=== PATIENT | male | born 1980 | race African-American/Black ===

== ENCOUNTER 2020-02-20 10:24 | Inpatient (IN) | payer OTHER ==
--- NOTE | 2020-02-20 10:47 | BHS.RME ---
Substance Use & Tx History - Substance Use History Alcohol Substance amount: 2 L liqour Frequency of use: Daily Substance route: Oral Date of Last Use: 02/20/20 - Last Treatment Date of last treatment: 3 months ago, does not remeber where Where was last treatment: Detox Physical/Psych/Mental Status - Behavior General Behavior: Increased activity (restlessness, agitation) Eye Contact: Normal - Cooperativeness Cooperativeness: Cooperative - Thinking Thought Processes: Logical Thought content: Future oriented - Physical Health Problems Is patient presently having any pain?: No Does patient presently have any injuries (include location): No Does patient currently have a fever: No CIWA Nausea/Vomitin Muscle Tremors: 2 Anxiety: 1-Mildly Anxious Agitation: 1-Slight > Activity Paroxysmal Sweats: 2 Orientation: 0-Oriented Tacttile Disturbances: 0-None Auditory Disturbances: 0-None Visual Disturbances: 0-None Headache: 2-Mild CIWA-Ar Total Score: 11
--- NOTE | 2020-02-20 10:59 | HP ---
CIWA Score Nausea/Vomitin Muscle Tremors: 2 Anxiety: 1-Mildly Anxious Agitation: 1-Slight > Activity Paroxysmal Sweats: 2 Orientation: 0-Oriented Tacttile Disturbances: 0-None Auditory Disturbances: 0-None Visual Disturbances: 0-None Headache: 2-Mild CIWA-Ar Total Score: 11 - Admission Criteria [facility]ASAS Guidelines: Admission for Medically Managed Detox: Requires at least one of the followin. CIWA greater than 12 2. Seizures within the past 24 hours 3. Delirium tremens within the past 24 hours 4. Hallucinations within the past 24 hours 5. Acute intervention needed for co occurring medical disorder 6. Acute intervention needed for co occurring psychiatric disorder 7. Severe withdrawal that cannot be handled at a lower level of care (continued vomiting, continued diarrhea, abnormal vital signs) requiring intravenous medication and/or fluids 8. Patient presents the following: Seizures, delirium tremens or hallucinations in the past 12 hours Admission Criteria Met: Admission criteria met Admission ROS BHS - HPI Chief Complaint: I need help Allergies/Adverse Reactions: Allergies Allergy/AdvReac Type Severity Reaction Status Date / Time seafood Allergy Severe Swelling Uncoded 02/20/20 11:02 History of Present Illness: 39 year old male with alcohol withdrawal presents for detox, this is his first time at [facility]. He reports previous seizures and blackouts related to intoxication. He has bipolar disorder, currently not on medication, he has declined to be sen by psych. 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) Respiratory: reports: No Symptoms reported Cardiac: reports: No Symptoms Reported GI: reports: Diarrhea, Nausea : reports: No Symptoms Reported Musculoskeletal: reports: Muscle Pain, Muscle Weakness Integumentary: reports: Sweating Neuro: reports: Headache, Seizure, Tremors Endocrine: reports: No Symptoms Reported Hematology: reports: Anemia Psychiatric: reports: No Sypmtoms Reported Other Systems: Reviewed and Negative Patient History - Patient Medical History Hx Anemia: Yes Hx Asthma: Yes Hx Chronic Obstructive Pulmonary Disease (COPD): No Hx Cancer: No Hx Cardiac Disorders: No Hx Congestive Heart Failure: No Hx Hypertension: No Hx Hypercholesterolemia: No Hx Pacemaker: No HX Cerebrovascular Accident: No Hx Seizures: Yes (r/t alcohol) Hx Dementia: No Hx Diabetes: No Hx Gastrointestinal Disorders: No Hx Liver Disease: No Hx Genitourinary Disorders: No Hx Sexually Transmitted Disorders: Yes (HIV) Hx Renal Disease (ESRD): No Hx Thyroid Disease: No Hx Human Immunodeficiency Virus (HIV): Yes (diagnosed in 2005) Hx Hepatitis C: No Hx Depression: No Hx Suicide Attempt: No Hx Bipolar Disorder: No Hx Schizophrenia: No - Patient Surgical History Past Surgical History: Yes Hx Orthopedic Surgery: Yes (Lt knee from injury) Anesthesia Reaction: No - PPD History Previous Implant?: Yes Documented Results: Negative w/o proof Implanted On Prior [facility] Admission?: No PPD to be Administered?: Yes - Smoking Cessation Smoking history: Current every day smoker Have you smoked in the past 12 months: Yes Aproximately how many cigarettes per day: 30 Hx Chewing Tobacco Use: No Initiated information on smoking cessation: Yes 'Breaking Loose' booklet given: 02/20/20 - Substance & Tx. History Hx Alcohol Use: Yes (2 L) Substance Use Type: Cocaine, Marijuana Hx Substance Use Treatment: No Admission Physical Exam BHS - Physical General Appearance: Yes: No Apparent Distress HEENTM: Yes: Hearing grossly Normal, Normocephalic, Normal Voice Respiratory: Yes: Chest Non-Tender, Lungs Clear, Normal Breath Sounds, No Respiratory Distress, No Accessory Muscle Use Neck: Yes: No masses,lesions,Nodules, Supple Breast: Yes: Breast Exam Deferred Cardiology: Yes: Regular Rhythm, Regular Rate, S1, S2 Abdominal: Yes: Normal Bowel Sounds, Soft Genitourinary: Yes: Within Normal Limits Back: Yes: Normal Inspection Musculoskeletal: Yes: full range of Motion, Muscle Pain, Muscle weakness Extremities: Yes: Tremors 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 intact, Fully Oriented, Alert, Normal Mood/Affect, Normal Response Integumentary: Yes: Cold Lymphatic: Yes: Within Normal Limits - Diagnostic (1) Alcohol dependence with withdrawal, uncomplicated Current Visit: Yes Status: Acute (2) HIV 2 (human immunodeficiency virus type 2) Current Visit: Yes Status: Chronic (3) Nicotine dependence Current Visit: Yes Status: Acute Qualifiers: Nicotine product type: cigarettes Substance use status: uncomplicated Qualified Code(s): F17.210 - Nicotine dependence, cigarettes, uncomplicated (4) Cocaine abuse Current Visit: Yes Status: Chronic Cleared for Admission [facility] - Detox or Rehab [facility] Level of Care: Medically Managed Detox Regimen/Protocol: Librium Claeared for Rehab Admission: No Inpatient Rehab Admission - Rehab Decision to Admit Inpatient rehab admission?: No
[2020-02-20] MEDS ORDERED: MAGNESIUM CITRATE 300 ML BOTTLE PO PRN (11:05)
[2020-02-20] MEDS ORDERED: IBUPROFEN 400 MG TABLET (FP) PO PRN (11:05)
[2020-02-20] MEDS ORDERED: ONDANSETRON *ODT* 4 MG TABLET SL ONE (11:05)
[2020-02-20] MEDS ORDERED: MAGNESIUM HYDROX 2400MG/30ML ORAL SUSPENSION 30 ML CUP PO PRN (11:05)
[2020-02-20] MEDS ORDERED: MENTHOL/PHENOL 1 EACH UD MM PRN (11:05)
[2020-02-20] MEDS ORDERED: MAG HYDROX/AL HYDROX/SIMETH 30 ML UNIT-DOSE CUP PO PRN (11:05)
[2020-02-20] MEDS ORDERED: BISMUTH SUBSALICYLATE 524 MG/30 ML UD PO PRN (11:05)
[2020-02-20] MEDS ORDERED: METHOCARBAMOL 500 MG TABLET PO PRN (11:05)
[2020-02-20] MEDS ORDERED: NICOTINE POLACRILEX 2 MG GUM BUC PRN (11:05)
[2020-02-20] MEDS ORDERED: ACETAMINOPHEN 325 MG TABLET (FP) PO PRN ×2 (11:05)
[2020-02-20] MEDS ORDERED: chlordiazePOXIDE HCL 10 MG CAPSULE PO PRN (11:05)
[2020-02-20 11:09] VITALS: BMI 22.0
[2020-02-20] MEDS: chlordiazePOXIDE HCL 25 MG CAPSULE PO SCH ×2 (15:00→22:00)
[2020-02-20] MEDS: hydrOXYzine PAMOATE 25 MG CAPSULE (FP) PO SCH ×3 (15:01→22:12)
[2020-02-20] MEDS: THIAMINE HCL 100 MG TABLET (FP) PO SCH (22:12)
[2020-02-20] MEDS: MELATONIN 5 MG TABLETS PO SCH (22:14)
[2020-02-21] MEDS: hydrOXYzine PAMOATE 25 MG CAPSULE (FP) PO SCH ×2 (05:47→10:57)
[2020-02-21] MEDS: chlordiazePOXIDE HCL 25 MG CAPSULE PO SCH ×3 (05:47→22:15)
--- NOTE | 2020-02-21 09:43 | PN ---
S CIWA - CIWA Score Nausea/Vomitin-Mild Nausea/No Vomiting Muscle Tremors: 3 Anxiety: 2 Agitation: 2 Paroxysmal Sweats: No Perspiration Orientation: 0-Oriented Tacttile Disturbances: 1-Very Mild Itch/Numbness Auditory Disturbances: 0-None Visual Disturbances: 0-None Headache: 2-Mild CIWA-Ar Total Score: 11 BHS Progress Note (SOAP) Subjective: alert,irritable,anxious,interrupted sleep,tremor Objective: 02/21/20 09:41 Vital Signs Temperature 97.8 F 02/21/20 08:55 Pulse Rate 82 02/21/20 08:55 Respiratory Rate 16 02/21/20 08:55 Blood Pressure 141/75 02/21/20 08:55 O2 Sat by Pulse Oximetry (%) 96 02/21/20 05:56 02/21/20 09:42 labs pending Assessment: withdrawal symptom Plan: continue detox librium regimen
[2020-02-21] MEDS ORDERED: [UNRECOGNIZED DRUG - OTHER] PO SCH (10:00)
[2020-02-21] MEDS ORDERED: hydrOXYzine PAMOATE 25 MG CAPSULE (FP) PO PRN (10:43)
[2020-02-21] MEDS: PRENATAL VITAMINS W/ FOLIC ACID TABLET (FP) PO SCH (10:56)
[2020-02-21] MEDS: NICOTINE 14 MG/24 HOURS TOPICAL PATCH TD SCH (10:56)
[2020-02-21 11:37] LABS: HEMATOCRIT 38.2 % (35.4-49); HEMOGLOBIN 12.9 GM/dL (11.7-16.9); MCH 33.6 pg (25.7-33.7); MCHC 33.8 g/dl (32.0-35.9); MEAN CELL VOLUME 99.3 fl (80-96); MEAN PLT VOLUME 9.8 fl (7.5-11.1); PLATELET COUNT 200 K/MM3 (134-434); RBC 3.85 M/mm3 (4.00-5.60); RDW 15.6 % (11.9-15.9); WHITE BLOOD COUNT 4.1 K/mm3 (4.0-10.0)
[2020-02-21 11:47] LABS: ALBUMIN 3.1 g/dl (3.4-5.0); BILIRUBIN,TOTAL 0.6 mg/dL (0.2-1); BLOOD UREA NITROGEN 13.8 mg/dL (7-18); CALCIUM 8.6 mg/dL (8.5-10.1); POTASSIUM 3.9 mmol/L (3.5-5.1); TOT PROT 7.1 g/dl (6.4-8.2)
[2020-02-21] MEDS ORDERED: PATIENT'S OWN MEDICATION (NON-FORMULARY) (Biktarvy 1 TAB) PO SCH (14:45)
[2020-02-21] MEDS ORDERED: BICTEGRAV/EMTRICIT/TENOFOV (BIKTARVY) 50-200-25 MG TABLET PO SCH (15:38)
[2020-02-21] MEDS: MELATONIN 5 MG TABLETS PO SCH (22:15)
[2020-02-21] MEDS: THIAMINE HCL 100 MG TABLET (FP) PO SCH (22:16)
[2020-02-22] MEDS ORDERED: chlordiazePOXIDE 5 MG CAPSULE PO SCH (05:00)
[2020-02-22 05:38] VITALS: PULSE 73
--- NOTE | 2020-02-22 09:06 | PN ---
S CIWA - CIWA Score Nausea/Vomitin-Mild Nausea/No Vomiting Muscle Tremors: 2 Anxiety: 2 Agitation: 2 Paroxysmal Sweats: No Perspiration Orientation: 0-Oriented Tacttile Disturbances: 1-Very Mild Itch/Numbness Auditory Disturbances: 0-None Visual Disturbances: 0-None Headache: 2-Mild CIWA-Ar Total Score: 10 S Progress Note (SOAP) Subjective: alert,irritable,anxious,interrupted sleep,tremor,pain in the body and back,marc [place] Objective: 02/22/20 09:04 Vital Signs Temperature 97.5 F L 02/22/20 05:37 Pulse Rate 73 02/22/20 05:37 Respiratory Rate 18 02/22/20 05:37 Blood Pressure 120/78 02/22/20 05:37 O2 Sat by Pulse Oximetry (%) 96 02/22/20 05:37 Laboratory Last Values WBC 4.1 K/mm3 (4.0-10.0) 02/21/20 08:15 RBC 3.85 M/mm3 (4.00-5.60) L 02/21/20 08:15 Hgb 12.9 GM/dL (11.7-16.9) 02/21/20 08:15 Hct 38.2 % (35.4-49) 02/21/20 08:15 MCV 99.3 fl (80-96) H 02/21/20 08:15 MCH 33.6 pg (25.7-33.7) 02/21/20 08:15 MCHC 33.8 g/dl (32.0-35.9) 02/21/20 08:15 RDW 15.6 % (11.9-15.9) 02/21/20 08:15 Plt Count 200 K/MM3 (134-434) 02/21/20 08:15 MPV 9.8 fl (7.5-11.1) 02/21/20 08:15 Sodium 139 mmol/L (136-145) 02/21/20 08:15 Potassium 3.9 mmol/L (3.5-5.1) 02/21/20 08:15 Chloride 106 mmol/L (98-107) 02/21/20 08:15 Carbon Dioxide 28 mmol/L (21-32) 02/21/20 08:15 Anion Gap 5 MMOL/L (8-16) L 02/21/20 08:15 BUN 13.8 mg/dL (7-18) 02/21/20 08:15 Creatinine 1.0 mg/dL (0.55-1.3) 02/21/20 08:15 Est GFR (CKD-EPI)AfAm 107.87 02/21/20 08:15 Est GFR (CKD-EPI)NonAf 93.07 02/21/20 08:15 Random Glucose 78 mg/dL (74-106) 02/21/20 08:15 Calcium 8.6 mg/dL (8.5-10.1) 02/21/20 08:15 Total Bilirubin 0.6 mg/dL (0.2-1) 02/21/20 08:15 AST 25 U/L (15-37) 02/21/20 08:15 ALT 27 U/L (13-61) 02/21/20 08:15 Alkaline Phosphatase 65 U/L (45-117) 02/21/20 08:15 Total Protein 7.1 g/dl (6.4-8.2) 02/21/20 08:15 Albumin 3.1 g/dl (3.4-5.0) L 02/21/20 08:15 Syphilis Serology Reactive (NONREACTIVE) A* 02/21/20 08:15 RPR Titer Nonreactive (NONREACTIVE) 02/21/20 08:15 Assessment: 02/22/20 09:05 withdrawal symptom Plan: continue detox librium regimen
[2020-02-22 09:47] VITALS: BP 148/74; TEMP 98
[2020-02-22] MEDS: PRENATAL VITAMINS W/ FOLIC ACID TABLET (FP) PO SCH (10:28)
[2020-02-22] MEDS: NICOTINE 14 MG/24 HOURS TOPICAL PATCH TD SCH (10:28)
--- NOTE | 2020-02-22 12:37 | PN ---
[facility] Progress Note Note: patient did not want to complete treatment,due to emergency family issue need to be taken of,high risks of relapsing explained,understood, all attempts to convince patient to stay with no avail,patient signed release ama,will see his medical provider Laly Washington for follow up
--- NOTE | 2020-02-22 12:46 | DS ---
[facility] Detox Discharge Summary Admission Date: 02/20/20 Discharge Date: 02/22/20 - History Present History: Alcohol Dependence, Cocaine Dependence Additional Comments: alert,oriented x 3 ambulation on the unit lung clear abdomen soft,no pain,no tenderness patient signed release ama as mentioned in the note before seen by counselor will follow up with medical provider Laly Washington and out patient program [facility] on Fri02/28/2020 [phone] left the unit in stable condition total time of discharge 35 minutes Pertinent Past History: hiv nicotine dependence - Physical Exam Results Vital Signs: Vital Signs Temperature 98.0 F 02/22/20 08:47 Pulse Rate 73 02/22/20 08:47 Respiratory Rate 16 02/22/20 08:47 Blood Pressure 148/74 02/22/20 08:47 O2 Sat by Pulse Oximetry (%) 96 02/22/20 05:37 Pertinent Admission Physical Exam Findings: withdrawal signs and symptom Laboratory Last Values WBC 4.1 K/mm3 (4.0-10.0) 02/21/20 08:15 RBC 3.85 M/mm3 (4.00-5.60) L 02/21/20 08:15 Hgb 12.9 GM/dL (11.7-16.9) 02/21/20 08:15 Hct 38.2 % (35.4-49) 02/21/20 08:15 MCV 99.3 fl (80-96) H 02/21/20 08:15 MCH 33.6 pg (25.7-33.7) 02/21/20 08:15 MCHC 33.8 g/dl (32.0-35.9) 02/21/20 08:15 RDW 15.6 % (11.9-15.9) 02/21/20 08:15 Plt Count 200 K/MM3 (134-434) 02/21/20 08:15 MPV 9.8 fl (7.5-11.1) 02/21/20 08:15 Sodium 139 mmol/L (136-145) 02/21/20 08:15 Potassium 3.9 mmol/L (3.5-5.1) 02/21/20 08:15 Chloride 106 mmol/L (98-107) 02/21/20 08:15 Carbon Dioxide 28 mmol/L (21-32) 02/21/20 08:15 Anion Gap 5 MMOL/L (8-16) L 02/21/20 08:15 BUN 13.8 mg/dL (7-18) 02/21/20 08:15 Creatinine 1.0 mg/dL (0.55-1.3) 02/21/20 08:15 Est GFR (CKD-EPI)AfAm 107.87 02/21/20 08:15 Est GFR (CKD-EPI)NonAf 93.07 02/21/20 08:15 Random Glucose 78 mg/dL (74-106) 02/21/20 08:15 Calcium 8.6 mg/dL (8.5-10.1) 02/21/20 08:15 Total Bilirubin 0.6 mg/dL (0.2-1) 02/21/20 08:15 AST 25 U/L (15-37) 02/21/20 08:15 ALT 27 U/L (13-61) 02/21/20 08:15 Alkaline Phosphatase 65 U/L (45-117) 02/21/20 08:15 Total Protein 7.1 g/dl (6.4-8.2) 02/21/20 08:15 Albumin 3.1 g/dl (3.4-5.0) L 02/21/20 08:15 Syphilis Serology Reactive (NONREACTIVE) A* 02/21/20 08:15 RPR Titer Nonreactive (NONREACTIVE) 02/21/20 08:15 Vital Signs Temperature 98.0 F 02/22/20 08:47 Pulse Rate 73 02/22/20 08:47 Respiratory Rate 16 02/22/20 08:47 Blood Pressure 148/74 02/22/20 08:47 O2 Sat by Pulse Oximetry (%) 96 02/22/20 05:37 - Medication Discharge Medications: Ambulatory Orders Bictegrav/Emtricit/Tenofov Ala [Biktarvy 50-200-25 mg Tablet] 50 mg PO DAILY 02/20/20 - Diagnosis (1) Alcohol dependence with withdrawal, uncomplicated Current Visit: Yes Status: Acute (2) HIV (human immunodeficiency virus infection) Current Visit: Yes Status: Acute (3) Nicotine dependence Current Visit: Yes Status: Acute Qualifiers: Nicotine product type: cigarettes Substance use status: uncomplicated Qualified Code(s): F17.210 - Nicotine dependence, cigarettes, uncomplicated (4) Cocaine abuse Current Visit: Yes Status: Chronic - AMA Did Patient Leave Against Medical Advice: Yes
[2020-02-23] MEDS ORDERED: chlordiazePOXIDE HCL 10 MG CAPSULE PO PRN
[2020-02-23] MEDS ORDERED: chlordiazePOXIDE HCL 10 MG CAPSULE PO SCH (05:00)
[2020-02-24] MEDS ORDERED: chlordiazePOXIDE HCL 10 MG CAPSULE PO ONE (05:00)
== END 2020-02-22 12:50 | disposition left against medical advice (07) | DRG 770 ==
LOC: YASAS 10:24 → Y6N 10:58
PROVIDERS: ADMIT Allergy & Immunology; ATTEND Allergy & Immunology
PROC: HZ2ZZZZ Detoxification Services for Substance Abuse Treatment (ICD-10-PCS; principal; 2020-02-20)
DX: F10.230 Alcohol dependence with withdrawal, uncomplicated (principal); F14.10 Cocaine abuse, uncomplicated; F17.210 Nicotine dependence, cigarettes, uncomplicated; J45.909 Unspecified asthma, uncomplicated; B97.35 Human immunodeficiency virus, type 2 [HIV 2] as the cause of diseases classified elsewhere; Z91.013 Allergy to seafood; Z86.69 Personal history of other diseases of the nervous system and sense organs
CPT/HCPCS: 36415; 80053; 85027; 86593; 86780; U0003

== ENCOUNTER 2021-09-26 16:15 | Inpatient (IN) | payer OTHER ==
[2021-09-26 20:22] VITALS: BMI 20.7
[2021-09-26] MEDS ORDERED: MAGNESIUM HYDROX 2400MG/30ML ORAL SUSPENSION 30 ML CUP PO PRN (20:35)
[2021-09-26] MEDS ORDERED: P-EPHED 60MG/TRIPROLIDI 2.5MG TABLET PO PRN (20:35)
[2021-09-26] MEDS ORDERED: MELATONIN 5 MG TABLETS PO PRN (20:35)
[2021-09-26] MEDS ORDERED: BISMUTH SUBSALICYLATE 524 MG/30 ML PO PRN (20:35)
[2021-09-26] MEDS ORDERED: ACETAMINOPHEN 325 MG TABLET (FP) PO PRN ×2 (20:35)
[2021-09-26] MEDS ORDERED: MAG HYDROX/AL HYDROX/SIMETH 30 ML UNIT-DOSE CUP PO PRN (20:35)
[2021-09-26] MEDS ORDERED: MENTHOL/PHENOL 1 EACH UD MM PRN (20:35)
[2021-09-26] MEDS ORDERED: ONDANSETRON *ODT* 4 MG TABLET SL PRN (20:35)
[2021-09-26] MEDS ORDERED: IBUPROFEN 400 MG TABLET (FP) PO PRN (20:35)
[2021-09-26] MEDS ORDERED: MAGNESIUM CITRATE 300 ML BOTTLE PO PRN (20:35)
[2021-09-26] MEDS ORDERED: guaiFENesin 200 MG/10 ML 10 ML UNIT-DOSE CUPS PO PRN (20:35)
[2021-09-26] MEDS ORDERED: chlordiazePOXIDE HCL 25 MG CAPSULE PO PRN (20:39)
[2021-09-26] MEDS: chlordiazePOXIDE HCL 25 MG CAPSULE PO SCH (23:22)
[2021-09-26] MEDS: METHOCARBAMOL 500 MG TABLET PO PRN (23:23)
[2021-09-26] MEDS: hydrOXYzine PAMOATE 25 MG CAPSULE (FP) PO PRN (23:23)
[2021-09-26] MEDS: THIAMINE HCL 100 MG TABLET (FP) PO SCH (23:23)
[2021-09-27] MEDS: chlordiazePOXIDE HCL 25 MG CAPSULE PO SCH ×4 (05:21→23:42)
[2021-09-27] MEDS: PRENATAL VITAMINS W/ FOLIC ACID TABLET (FP) PO SCH (10:42)
[2021-09-27] MEDS: METHOCARBAMOL 500 MG TABLET PO PRN (10:42)
[2021-09-27] MEDS: THIAMINE HCL 100 MG TABLET (FP) PO SCH (23:41)
[2021-09-28] MEDS: chlordiazePOXIDE HCL 25 MG CAPSULE PO SCH ×4 (06:21→22:48)
[2021-09-28 10:38] LABS: HEMATOCRIT 32.1 % (35.4-49); HEMOGLOBIN 11.2 GM/dL (11.7-16.9); MCHC 34.9 g/dl (32.0-35.9); MEAN CELL VOLUME 94.6 fl (80-96); MEAN PLT VOLUME 10.1 fl (7.5-11.1); PLATELET COUNT 136 10^3/uL (134-434); RBC 3.39 M/mm3 (4.00-5.60); RDW 14.8 % (11.9-15.9); WHITE BLOOD COUNT 3.3 K/mm3 (4.0-10.0)
[2021-09-28 10:45] LABS: CALCIUM 8.2 mg/dL (8.5-10.1)
[2021-09-28 10:46] LABS: BLOOD UREA NITROGEN 10.4 mg/dL (7-18)
[2021-09-28 10:49] LABS: CREATININE 0.9 mg/dL (0.55-1.3)
[2021-09-28 10:50] LABS: BILIRUBIN,TOTAL 0.6 mg/dL (0.2-1)
[2021-09-28 10:51] LABS: TOT PROT 6.8 g/dl (6.4-8.2)
[2021-09-28] MEDS: PRENATAL VITAMINS W/ FOLIC ACID TABLET (FP) PO SCH (11:10)
[2021-09-28] MEDS ORDERED: PENICILLIN G BENZATHINE 2,400,000 UNIT/4 ML PFS IM ONE (14:00)
[2021-09-28] MEDS: METHOCARBAMOL 500 MG TABLET PO PRN (19:29)
[2021-09-28] MEDS: THIAMINE HCL 100 MG TABLET (FP) PO SCH (22:48)
[2021-09-29] MEDS ORDERED: chlordiazePOXIDE HCL 10 MG CAPSULE PO PRN
[2021-09-29] MEDS: METHOCARBAMOL 500 MG TABLET PO PRN ×2 (04:01→11:01)
[2021-09-29] MEDS: chlordiazePOXIDE HCL 10 MG CAPSULE PO SCH ×2 (07:02→11:47)
[2021-09-29] MEDS: hydrOXYzine PAMOATE 25 MG CAPSULE (FP) PO PRN (11:01)
[2021-09-29] MEDS: PRENATAL VITAMINS W/ FOLIC ACID TABLET (FP) PO SCH (11:01)
[2021-09-29 11:16] VITALS: BP 119/73; PULSE 68; TEMP 97.4
[2021-09-30] MEDS ORDERED: chlordiazePOXIDE HCL 10 MG CAPSULE PO SCH (05:00)
[2021-10-01] MEDS ORDERED: chlordiazePOXIDE HCL 10 MG CAPSULE PO ONE (05:00)
== END 2021-09-29 13:35 | disposition left against medical advice (07) | DRG 770 ==
LOC: YASAS 16:15 → Y6N 20:39
PROVIDERS: ADMIT Allergy & Immunology; ATTEND Allergy & Immunology
PROC: HZ2ZZZZ Detoxification Services for Substance Abuse Treatment (ICD-10-PCS; principal; 2021-09-26)
DX: F10.230 Alcohol dependence with withdrawal, uncomplicated (principal); F14.20 Cocaine dependence, uncomplicated; F12.20 Cannabis dependence, uncomplicated; F17.210 Nicotine dependence, cigarettes, uncomplicated; U07.1 COVID-19; Z21 Asymptomatic human immunodeficiency virus [HIV] infection status; A53.0 Latent syphilis, unspecified as early or late; G62.9 Polyneuropathy, unspecified; D64.9 Anemia, unspecified; J45.909 Unspecified asthma, uncomplicated; M54.50 Low back pain, unspecified; G89.29 Other chronic pain; Z91.013 Allergy to seafood
CPT/HCPCS: 36415; 80053; 85027; 86593; 86780; C9803; U0003; U0005

== ENCOUNTER 2021-12-04 16:04 | Inpatient (IN) | payer OTHER ==
[2021-12-04 17:52] VITALS: BMI 21.6
[2021-12-04] MEDS ORDERED: MAGNESIUM CITRATE 300 ML BOTTLE PO PRN (18:30)
[2021-12-04] MEDS ORDERED: BISMUTH SUBSALICYLATE 524 MG/30 ML PO PRN (18:30)
[2021-12-04] MEDS ORDERED: IBUPROFEN 400 MG TABLET (FP) PO PRN (18:30)
[2021-12-04] MEDS ORDERED: DICYCLOMINE HCL 10 MG CAPSULE PO PRN (18:30)
[2021-12-04] MEDS ORDERED: MAGNESIUM HYDROX 2400MG/30ML ORAL SUSPENSION 30 ML CUP PO PRN (18:30)
[2021-12-04] MEDS ORDERED: BENZOCAINE/MENTHOL (CHLORASEPTIC ) LOZENGE MM PRN (18:30)
[2021-12-04] MEDS ORDERED: LOPERAMIDE HCL 2 MG CAPSULE PO PRN (18:30)
[2021-12-04] MEDS ORDERED: ACETAMINOPHEN 325 MG TABLET (FP) PO PRN ×2 (18:30)
[2021-12-04] MEDS ORDERED: MAG HYDROX/AL HYDROX/SIMETH 30 ML UNIT-DOSE CUP PO PRN (18:30)
[2021-12-04] MEDS ORDERED: ONDANSETRON *ODT* 4 MG TABLET SL PRN (18:30)
[2021-12-04] MEDS ORDERED: diazePAM 5 MG TABLET PO PRN (19:27)
[2021-12-04] MEDS ORDERED: ALBUTEROL SO4 HFA INHALER IH PRN (22:00)
[2021-12-04] MEDS: THIAMINE HCL 100 MG TABLET (FP) PO SCH (23:21)
[2021-12-04] MEDS: SULFAMETHOXAZOLE/TRIMETHOPRIM 800MG/160MG D.S. TABLET PO SCH (23:21)
[2021-12-04] MEDS: MELATONIN 5 MG TABLETS PO PRN (23:21)
[2021-12-05] MEDS: DARUNAVIR/COB/EMTRI/TENOF (SYMTUZA) TABLET (NF) PO SCH ×2 (00:02→10:31)
[2021-12-05] MEDS: SULFAMETHOXAZOLE/TRIMETHOPRIM 800MG/160MG D.S. TABLET PO SCH ×2 (10:31→23:00)
[2021-12-05] MEDS: PRENATAL VITAMINS W/ FOLIC ACID TABLET (FP) PO SCH (10:31)
[2021-12-05 10:52] LABS: HEMATOCRIT 33.9 % (35.4-49); HEMOGLOBIN 11.4 GM/dL (11.7-16.9); MCHC 33.7 g/dl (32.0-35.9); MEAN CELL VOLUME 94.7 fl (80-96); PLATELET COUNT 109 10^3/uL (134-434); RBC 3.58 M/mm3 (4.00-5.60); RDW 14.7 % (11.9-15.9); WHITE BLOOD COUNT 5.8 K/mm3 (4.0-10.0)
[2021-12-05 10:53] LABS: ALBUMIN 3.1 g/dl (3.4-5.0); CALCIUM 8.2 mg/dL (8.5-10.1)
[2021-12-05 10:54] LABS: BLOOD UREA NITROGEN 6.8 mg/dL (7-18)
[2021-12-05 10:58] LABS: BILIRUBIN,TOTAL 0.4 mg/dL (0.2-1); TOT PROT 7.2 g/dl (6.4-8.2)
[2021-12-05] MEDS ORDERED: diazePAM 5 MG TABLET PO PRN (12:05)
[2021-12-05] MEDS: diazePAM 5 MG TABLET PO SCH ×4 (12:35→23:00)
[2021-12-05] MEDS: THIAMINE HCL 100 MG TABLET (FP) PO SCH (23:01)
[2021-12-06] MEDS: diazePAM 5 MG TABLET PO SCH ×3 (06:34→22:48)
[2021-12-06] MEDS: METHOCARBAMOL 500 MG TABLET PO PRN ×2 (06:36→15:22)
[2021-12-06] MEDS: DARUNAVIR/COB/EMTRI/TENOF (SYMTUZA) TABLET (NF) PO SCH (10:34)
[2021-12-06] MEDS: SULFAMETHOXAZOLE/TRIMETHOPRIM 800MG/160MG D.S. TABLET PO SCH ×2 (10:34→22:48)
[2021-12-06] MEDS: PRENATAL VITAMINS W/ FOLIC ACID TABLET (FP) PO SCH (10:34)
[2021-12-06] MEDS: POTASSIUM CHLORIDE TABS 20 MEQ TABLET.ER (FP) PO SCH ×2 (10:45→22:48)
[2021-12-06] MEDS: MELATONIN 5 MG TABLETS PO PRN (22:48)
[2021-12-06] MEDS: THIAMINE HCL 100 MG TABLET (FP) PO SCH (22:50)
[2021-12-07] MEDS ORDERED: diazePAM 5 MG TABLET PO SCH (06:00)
[2021-12-07 08:47] VITALS: BP 124/67; PULSE 82; TEMP 96.9
[2021-12-07] MEDS: DARUNAVIR/COB/EMTRI/TENOF (SYMTUZA) TABLET (NF) PO SCH (10:45)
[2021-12-07] MEDS: PRENATAL VITAMINS W/ FOLIC ACID TABLET (FP) PO SCH (10:45)
[2021-12-07] MEDS: POTASSIUM CHLORIDE TABS 20 MEQ TABLET.ER (FP) PO SCH (10:45)
[2021-12-07] MEDS: SULFAMETHOXAZOLE/TRIMETHOPRIM 800MG/160MG D.S. TABLET PO SCH (10:45)
[2021-12-07 12:08] LABS: SARS-CoV-2 NAA Detected (Not Detected)
[2021-12-08] MEDS ORDERED: diazePAM 5 MG TABLET PO ONE (06:00)
== END 2021-12-07 11:15 | disposition home or self-care (01) | DRG 774 ==
LOC: YASAS 16:04 → Y6N 19:32 → Y3N 22:04
PROVIDERS: ADMIT Allergy & Immunology; ATTEND Allergy & Immunology
PROC: HZ2ZZZZ Detoxification Services for Substance Abuse Treatment (ICD-10-PCS; principal; 2021-12-04)
DX: F10.230 Alcohol dependence with withdrawal, uncomplicated (principal); F14.20 Cocaine dependence, uncomplicated; F12.20 Cannabis dependence, uncomplicated; F17.210 Nicotine dependence, cigarettes, uncomplicated; U07.1 COVID-19; Z21 Asymptomatic human immunodeficiency virus [HIV] infection status; G62.9 Polyneuropathy, unspecified; D64.9 Anemia, unspecified; H54.61 Unqualified visual loss, right eye, normal vision left eye; J45.909 Unspecified asthma, uncomplicated; Z28.311 Partially vaccinated for COVID-19; Z91.013 Allergy to seafood
CPT/HCPCS: 36415; 80053; 84132; 85027; 86593; 86780; 87811; C9803-CS; Q0162; U0003; U0005

== ENCOUNTER 2022-03-14 11:01 | Inpatient (IN) | payer OTHER ==
[2022-03-14] MEDS ORDERED: BENZOCAINE/MENTHOL (CHLORASEPTIC ) LOZENGE MM PRN (14:47)
[2022-03-14] MEDS ORDERED: IBUPROFEN 400 MG TABLET (FP) PO PRN (14:47)
[2022-03-14] MEDS ORDERED: MAGNESIUM HYDROX 2400MG/30ML ORAL SUSPENSION 30 ML CUP PO PRN (14:47)
[2022-03-14] MEDS ORDERED: ACETAMINOPHEN 325 MG TABLET (FP) PO PRN (14:47)
[2022-03-14] MEDS ORDERED: DICYCLOMINE HCL 10 MG CAPSULE PO PRN (14:47)
[2022-03-14] MEDS ORDERED: MAGNESIUM CITRATE 300 ML BOTTLE PO PRN (14:47)
[2022-03-14] MEDS ORDERED: METHOCARBAMOL 500 MG TABLET PO PRN (14:47)
[2022-03-14] MEDS ORDERED: MAG HYDROX/AL HYDROX/SIMETH 30 ML UNIT-DOSE CUP PO PRN (14:47)
[2022-03-14] MEDS ORDERED: BISMUTH SUBSALICYLATE 262 MG/15 ML BTL PO PRN (14:47)
[2022-03-14] MEDS ORDERED: LOPERAMIDE HCL 2 MG CAPSULE PO PRN (14:47)
[2022-03-14] MEDS ORDERED: ONDANSETRON *ODT* 4 MG TABLET SL PRN (14:47)
[2022-03-14] MEDS ORDERED: diazePAM 5 MG TABLET PO PRN (14:54)
[2022-03-14] MEDS: IBUPROFEN 600 MG TABLET (FP) PO PRN (16:05)
[2022-03-14] MEDS: hydrOXYzine PAMOATE 25 MG CAPSULE (FP) PO SCH ×2 (17:42→22:43)
[2022-03-14] MEDS: diazePAM 5 MG TABLET PO SCH ×2 (17:42→22:42)
[2022-03-14] MEDS: NICOTINE 10 MG CARTRIDGE (INHALER) IH PRN ×2 (17:45→22:59)
[2022-03-14] MEDS: MELATONIN 5 MG TABLETS PO SCH (22:42)
[2022-03-14] MEDS: THIAMINE HCL 100 MG TABLET (FP) PO SCH (22:43)
[2022-03-15] MEDS: diazePAM 5 MG TABLET PO SCH ×4 (05:30→23:10)
[2022-03-15] MEDS: hydrOXYzine PAMOATE 25 MG CAPSULE (FP) PO SCH ×5 (05:30→23:09)
[2022-03-15] MEDS: PRENATAL VITAMINS W/ FOLIC ACID TABLET (FP) PO SCH (11:01)
[2022-03-15 12:23] LABS: HEMATOCRIT 35.8 % (35.4-49); HEMOGLOBIN 11.9 GM/dL (11.7-16.9); MCH 32.5 pg (25.7-33.7); MCHC 33.3 g/dl (32.0-35.9); MEAN CELL VOLUME 97.6 fl (80-96); MEAN PLT VOLUME 9.6 fl (7.5-11.1); PLATELET COUNT 225 10^3/uL (134-434); RBC 3.67 M/mm3 (4.00-5.60); RDW 15.1 % (11.9-15.9); WHITE BLOOD COUNT 3.8 K/mm3 (4.0-10.0)
[2022-03-15 12:37] LABS: ALBUMIN 3.6 g/dl (3.4-5.0); BLOOD UREA NITROGEN 14.8 mg/dL (7-18)
[2022-03-15 12:40] LABS: CREATININE 0.9 mg/dL (0.55-1.3)
[2022-03-15 12:41] LABS: TOT PROT 8.2 g/dl (6.4-8.2)
[2022-03-15 12:42] LABS: BILIRUBIN,TOTAL 0.5 mg/dL (0.2-1)
[2022-03-15] MEDS: THIAMINE HCL 100 MG TABLET (FP) PO SCH (23:09)
[2022-03-15] MEDS: MIRTAZAPINE 15 MG TABLET (FP) PO SCH (23:09)
[2022-03-15] MEDS: MELATONIN 5 MG TABLETS PO SCH (23:09)
[2022-03-16] MEDS: hydrOXYzine PAMOATE 25 MG CAPSULE (FP) PO SCH ×5 (06:02→22:04)
[2022-03-16] MEDS: diazePAM 5 MG TABLET PO SCH ×3 (06:02→22:04)
[2022-03-16] MEDS: PRENATAL VITAMINS W/ FOLIC ACID TABLET (FP) PO SCH (10:18)
[2022-03-16] MEDS: MIRTAZAPINE 15 MG TABLET (FP) PO SCH (22:04)
[2022-03-16] MEDS: THIAMINE HCL 100 MG TABLET (FP) PO SCH (22:04)
[2022-03-16] MEDS: MELATONIN 5 MG TABLETS PO SCH (22:04)
[2022-03-17] MEDS: diazePAM 5 MG TABLET PO SCH ×2 (07:27→17:59)
[2022-03-17] MEDS: hydrOXYzine PAMOATE 25 MG CAPSULE (FP) PO SCH ×5 (07:29→22:17)
[2022-03-17] MEDS: PRENATAL VITAMINS W/ FOLIC ACID TABLET (FP) PO SCH (10:37)
[2022-03-17] MEDS: ACETAMINOPHEN 325 MG TABLET (FP) PO PRN (16:32)
[2022-03-17] MEDS: MIRTAZAPINE 15 MG TABLET (FP) PO SCH (22:16)
[2022-03-17] MEDS: THIAMINE HCL 100 MG TABLET (FP) PO SCH (22:16)
[2022-03-17] MEDS: MELATONIN 5 MG TABLETS PO SCH (23:01)
[2022-03-18] MEDS: ACETAMINOPHEN 325 MG TABLET (FP) PO PRN (05:35)
[2022-03-18] MEDS: hydrOXYzine PAMOATE 25 MG CAPSULE (FP) PO SCH ×4 (05:36→17:45)
[2022-03-18] MEDS ORDERED: diazePAM 5 MG TABLET PO ONE (06:00)
[2022-03-18 06:39] VITALS: RESP 18
[2022-03-18] MEDS: PRENATAL VITAMINS W/ FOLIC ACID TABLET (FP) PO SCH (10:20)
[2022-03-18 13:03] VITALS: BP 136/98; PULSE 96; TEMP 97.7
[2022-03-18] MEDS: IBUPROFEN 600 MG TABLET (FP) PO PRN (15:41)
== END 2022-03-18 17:56 | disposition other institution (70) | DRG 774 ==
LOC: YASAS 11:01 → Y3N 14:38
PROVIDERS: ADMIT Allergy & Immunology; ATTEND Surgery
PROC: HZ2ZZZZ Detoxification Services for Substance Abuse Treatment (ICD-10-PCS; principal; 2022-03-14)
DX: F10.230 Alcohol dependence with withdrawal, uncomplicated (principal); F14.20 Cocaine dependence, uncomplicated; F12.20 Cannabis dependence, uncomplicated; F17.210 Nicotine dependence, cigarettes, uncomplicated; F43.10 Post-traumatic stress disorder, unspecified; B20 Human immunodeficiency virus [HIV] disease; G62.9 Polyneuropathy, unspecified; J45.909 Unspecified asthma, uncomplicated; G47.00 Insomnia, unspecified; M54.50 Low back pain, unspecified; G89.29 Other chronic pain; Z86.19 Personal history of other infectious and parasitic diseases; Z91.14 Patient's other noncompliance with medication regimen; Z28.311 Partially vaccinated for COVID-19
CPT/HCPCS: 36415; 80053; 85027; 86593; 86780; C9803-CS; U0003; U0005

== ENCOUNTER 2022-03-18 18:46 | Inpatient (IN) | payer OTHER ==
[2022-03-18] MEDS ORDERED: guaiFENesin 200 MG/10 ML 10 ML UNIT-DOSE CUPS PO PRN (21:05)
[2022-03-18] MEDS ORDERED: NICOTINE POLACRILEX 2 MG GUM BUC PRN (21:05)
[2022-03-18] MEDS ORDERED: BENZOCAINE/MENTHOL (CHLORASEPTIC ) LOZENGE MM PRN (21:05)
[2022-03-18] MEDS ORDERED: MAG HYDROX/AL HYDROX/SIMETH 30 ML UNIT-DOSE CUP PO PRN (21:05)
[2022-03-18] MEDS ORDERED: MAGNESIUM HYDROX 2400MG/30ML ORAL SUSPENSION 30 ML CUP PO PRN (21:05)
[2022-03-18] MEDS ORDERED: MAGNESIUM CITRATE 300 ML BOTTLE PO PRN (21:05)
[2022-03-18] MEDS ORDERED: LOPERAMIDE HCL 2 MG CAPSULE PO PRN (21:05)
[2022-03-18] MEDS ORDERED: NICOTINE 10 MG CARTRIDGE (INHALER) IH PRN (21:05)
[2022-03-18] MEDS: hydrOXYzine PAMOATE 25 MG CAPSULE (FP) PO PRN (22:02)
[2022-03-18] MEDS: THIAMINE HCL 100 MG TABLET (FP) PO SCH (22:02)
[2022-03-18] MEDS: MELATONIN 5 MG TABLETS PO PRN (22:02)
[2022-03-19] MEDS: PRENATAL VITAMINS W/ FOLIC ACID TABLET (FP) PO SCH (10:47)
[2022-03-19] MEDS: IBUPROFEN 400 MG TABLET (FP) PO PRN ×2 (11:16→21:48)
[2022-03-19] MEDS: P-EPHED 60MG/TRIPROLIDI 2.5MG TABLET PO PRN (11:20)
[2022-03-19] MEDS: hydrOXYzine PAMOATE 25 MG CAPSULE (FP) PO PRN (20:25)
[2022-03-19] MEDS: THIAMINE HCL 100 MG TABLET (FP) PO SCH (21:47)
[2022-03-19] MEDS: MIRTAZAPINE 15 MG TABLET (FP) PO SCH (21:47)
[2022-03-19] MEDS: MELATONIN 5 MG TABLETS PO PRN (21:47)
[2022-03-19] MEDS ORDERED: MIRTAZAPINE 15 MG TABLET (FP) PO SCH (22:00)
[2022-03-20] MEDS: hydrOXYzine PAMOATE 25 MG CAPSULE (FP) PO PRN (06:43)
[2022-03-20] MEDS: PRENATAL VITAMINS W/ FOLIC ACID TABLET (FP) PO SCH (10:33)
[2022-03-20] MEDS: MELATONIN 5 MG TABLETS PO PRN (21:49)
[2022-03-20] MEDS: MIRTAZAPINE 15 MG TABLET (FP) PO SCH (21:49)
[2022-03-20] MEDS: THIAMINE HCL 100 MG TABLET (FP) PO SCH (21:50)
[2022-03-21] MEDS: PRENATAL VITAMINS W/ FOLIC ACID TABLET (FP) PO SCH (10:05)
[2022-03-21] MEDS: ACETAMINOPHEN 325 MG TABLET (FP) PO PRN (10:06)
[2022-03-21] MEDS: MIRTAZAPINE 15 MG TABLET (FP) PO SCH (21:23)
[2022-03-21] MEDS: THIAMINE HCL 100 MG TABLET (FP) PO SCH (21:23)
[2022-03-22] MEDS: ACETAMINOPHEN 325 MG TABLET (FP) PO PRN (06:39)
[2022-03-22] MEDS: hydrOXYzine PAMOATE 25 MG CAPSULE (FP) PO PRN (06:40)
[2022-03-22] MEDS ORDERED: METHOCARBAMOL 500 MG TABLET PO PRN (09:07)
[2022-03-22] MEDS: PRENATAL VITAMINS W/ FOLIC ACID TABLET (FP) PO SCH (10:22)
[2022-03-22] MEDS: MIRTAZAPINE 15 MG TABLET (FP) PO SCH (21:41)
[2022-03-22] MEDS: THIAMINE HCL 100 MG TABLET (FP) PO SCH (21:41)
[2022-03-23] MEDS: IBUPROFEN 400 MG TABLET (FP) PO PRN (06:35)
[2022-03-23 07:09] VITALS: RESP 18
[2022-03-23] MEDS: PRENATAL VITAMINS W/ FOLIC ACID TABLET (FP) PO SCH (10:07)
[2022-03-23] MEDS: MIRTAZAPINE 15 MG TABLET (FP) PO SCH (21:06)
[2022-03-23] MEDS: THIAMINE HCL 100 MG TABLET (FP) PO SCH (21:06)
[2022-03-24] MEDS: hydrOXYzine PAMOATE 25 MG CAPSULE (FP) PO PRN (06:34)
[2022-03-24] MEDS: P-EPHED 60MG/TRIPROLIDI 2.5MG TABLET PO PRN (06:34)
[2022-03-24] MEDS: IBUPROFEN 400 MG TABLET (FP) PO PRN (06:34)
[2022-03-24] MEDS: PRENATAL VITAMINS W/ FOLIC ACID TABLET (FP) PO SCH (10:05)
[2022-03-24 22:16] VITALS: BP 121/81; PULSE 97; TEMP 98
== END 2022-03-24 21:15 | disposition left against medical advice (07) | DRG 770 ==
LOC: YASAS 18:46 → Y3W 18:47
PROVIDERS: ADMIT Allergy & Immunology; ATTEND Psychiatry & Neurology Pain Medicine
PROC: HZ42ZZZ Group Counseling for Substance Abuse Treatment, Cognitive-Behavioral (ICD-10-PCS; principal; 2022-03-18)
DX: F10.20 Alcohol dependence, uncomplicated (principal); F14.20 Cocaine dependence, uncomplicated; F12.20 Cannabis dependence, uncomplicated; F17.210 Nicotine dependence, cigarettes, uncomplicated; B20 Human immunodeficiency virus [HIV] disease; M54.59 Other low back pain; G89.29 Other chronic pain; G47.00 Insomnia, unspecified; G62.9 Polyneuropathy, unspecified; Z91.14 Patient's other noncompliance with medication regimen; Z56.0 Unemployment, unspecified; Z59.00 Homelessness unspecified

== ENCOUNTER 2022-04-26 16:38 | Inpatient (IN) | payer OTHER ==
[2022-04-26 17:53] VITALS: BMI 21.4
[2022-04-26] MEDS ORDERED: chlordiazePOXIDE HCL 25 MG CAPSULE PO PRN (19:23)
[2022-04-26] MEDS ORDERED: MAGNESIUM HYDROX 2400MG/30ML ORAL SUSPENSION 30 ML CUP PO PRN (19:23)
[2022-04-26] MEDS ORDERED: METHOCARBAMOL 500 MG TABLET PO PRN (19:23)
[2022-04-26] MEDS ORDERED: LOPERAMIDE HCL 2 MG CAPSULE PO PRN (19:23)
[2022-04-26] MEDS ORDERED: ACETAMINOPHEN 325 MG TABLET (FP) PO PRN ×3 (19:23→19:39)
[2022-04-26] MEDS ORDERED: ONDANSETRON *ODT* 4 MG TABLET SL PRN (19:23)
[2022-04-26] MEDS ORDERED: BENZOCAINE/MENTHOL (CHLORASEPTIC ) LOZENGE MM PRN (19:23)
[2022-04-26] MEDS ORDERED: IBUPROFEN 400 MG TABLET (FP) PO PRN (19:23)
[2022-04-26] MEDS ORDERED: NALOXONE HCL (KLOXXADO) 8 MG SPRAY NS PRN (19:23)
[2022-04-26] MEDS ORDERED: IBUPROFEN 600 MG TABLET (FP) PO PRN (19:23)
[2022-04-26] MEDS ORDERED: MAG HYDROX/AL HYDROX/SIMETH 30 ML UNIT-DOSE CUP PO PRN (19:23)
[2022-04-26] MEDS ORDERED: BISMUTH SUBSALICYLATE 524 MG/30 ML PO PRN (19:23)
[2022-04-26] MEDS ORDERED: NICOTINE 10 MG CARTRIDGE (INHALER) IH PRN (19:23)
[2022-04-26] MEDS ORDERED: MAGNESIUM CITRATE 300 ML BOTTLE PO PRN (19:23)
[2022-04-26] MEDS ORDERED: DICYCLOMINE HCL 10 MG CAPSULE PO PRN (19:23)
[2022-04-26] MEDS ORDERED: ALBUTEROL SO4 HFA INHALER IH PRN (19:28)
[2022-04-26] MEDS ORDERED: chlordiazePOXIDE HCL 25 MG CAPSULE ONE (20:00)
[2022-04-26] MEDS: PRENATAL VITAMINS W/ FOLIC ACID TABLET (FP) PO SCH (20:04)
[2022-04-26] MEDS: chlordiazePOXIDE HCL 25 MG CAPSULE PO SCH (20:44)
[2022-04-26] MEDS: hydrOXYzine PAMOATE 25 MG CAPSULE (FP) PO SCH (22:55)
[2022-04-26] MEDS: THIAMINE HCL 100 MG TABLET (FP) PO SCH (22:55)
[2022-04-26] MEDS: MELATONIN 5 MG TABLETS PO SCH (22:55)
[2022-04-26] MEDS: DARUNAVIR/COB/EMTRI/TENOF (SYMTUZA) TABLET (NF) PO SCH (23:26)
[2022-04-27] MEDS: chlordiazePOXIDE HCL 25 MG CAPSULE PO SCH ×4 (05:22→22:08)
[2022-04-27] MEDS: hydrOXYzine PAMOATE 25 MG CAPSULE (FP) PO SCH ×5 (05:23→22:10)
[2022-04-27] MEDS: PRENATAL VITAMINS W/ FOLIC ACID TABLET (FP) PO SCH (10:40)
[2022-04-27] MEDS: DARUNAVIR/COB/EMTRI/TENOF (SYMTUZA) TABLET (NF) PO SCH (10:42)
[2022-04-27 15:35] LABS: ALBUMIN 3.4 g/dl (3.4-5.0)
[2022-04-27 15:37] LABS: BLOOD UREA NITROGEN 16.6 mg/dL (7-18); CALCIUM 8.9 mg/dL (8.5-10.1)
[2022-04-27 15:39] LABS: BILIRUBIN,TOTAL 0.4 mg/dL (0.2-1); TOT PROT 7.3 g/dl (6.4-8.2)
[2022-04-27 15:47] LABS: HEMATOCRIT 34.8 % (35.4-49); HEMOGLOBIN 11.5 GM/dL (11.7-16.9); MCH 31.8 pg (25.7-33.7); MCHC 33.1 g/dl (32.0-35.9); MEAN PLT VOLUME 10.6 fl (7.5-11.1); PLATELET COUNT 164 10^3/uL (134-434); RBC 3.63 M/mm3 (4.00-5.60); RDW 14.2 % (11.9-15.9); WHITE BLOOD COUNT 3.7 K/mm3 (4.0-10.0)
[2022-04-27] MEDS: OLANZapine 10 MG TABLET PO SCH (22:10)
[2022-04-27] MEDS: MELATONIN 5 MG TABLETS PO SCH (22:10)
[2022-04-27] MEDS: THIAMINE HCL 100 MG TABLET (FP) PO SCH (22:10)
[2022-04-27] MEDS: MIRTAZAPINE 15 MG TABLET (FP) PO SCH (22:10)
[2022-04-28] MEDS: hydrOXYzine PAMOATE 25 MG CAPSULE (FP) PO SCH ×5 (05:02→22:46)
[2022-04-28] MEDS: chlordiazePOXIDE HCL 25 MG CAPSULE PO SCH ×4 (05:02→22:46)
[2022-04-28] MEDS: DARUNAVIR/COB/EMTRI/TENOF (SYMTUZA) TABLET (NF) PO SCH (08:17)
[2022-04-28] MEDS ORDERED: OLANZapine 10 MG TABLET PO SCH (10:00)
[2022-04-28] MEDS: PRENATAL VITAMINS W/ FOLIC ACID TABLET (FP) PO SCH (10:52)
[2022-04-28] MEDS: THIAMINE HCL 100 MG TABLET (FP) PO SCH (22:46)
[2022-04-28] MEDS: MIRTAZAPINE 15 MG TABLET (FP) PO SCH (22:46)
[2022-04-28] MEDS: MELATONIN 5 MG TABLETS PO SCH (22:46)
[2022-04-28] MEDS: OLANZapine 10 MG TABLET PO SCH (22:46)
[2022-04-29] MEDS ORDERED: chlordiazePOXIDE HCL 10 MG CAPSULE PO PRN
[2022-04-29] MEDS: ACETAMINOPHEN 325 MG TABLET (FP) PO PRN ×2 (03:13→22:24)
[2022-04-29] MEDS: hydrOXYzine PAMOATE 25 MG CAPSULE (FP) PO SCH ×5 (05:51→22:06)
[2022-04-29] MEDS: chlordiazePOXIDE HCL 10 MG CAPSULE PO SCH ×4 (05:51→22:07)
[2022-04-29] MEDS: DARUNAVIR/COB/EMTRI/TENOF (SYMTUZA) TABLET (NF) PO SCH (07:59)
[2022-04-29] MEDS: PRENATAL VITAMINS W/ FOLIC ACID TABLET (FP) PO SCH (10:14)
[2022-04-29 21:26] VITALS: RESP 18
[2022-04-29] MEDS: MIRTAZAPINE 15 MG TABLET (FP) PO SCH (22:06)
[2022-04-29] MEDS: THIAMINE HCL 100 MG TABLET (FP) PO SCH (22:06)
[2022-04-29] MEDS: OLANZapine 10 MG TABLET PO SCH (22:06)
[2022-04-29] MEDS: MELATONIN 5 MG TABLETS PO SCH (22:06)
[2022-04-30] MEDS: chlordiazePOXIDE HCL 10 MG CAPSULE PO SCH ×2 (06:43→17:40)
[2022-04-30] MEDS: hydrOXYzine PAMOATE 25 MG CAPSULE (FP) PO SCH ×5 (06:43→21:59)
[2022-04-30] MEDS: DARUNAVIR/COB/EMTRI/TENOF (SYMTUZA) TABLET (NF) PO SCH (08:37)
[2022-04-30] MEDS: PRENATAL VITAMINS W/ FOLIC ACID TABLET (FP) PO SCH (10:24)
[2022-04-30] MEDS: OLANZapine 10 MG TABLET PO SCH (21:58)
[2022-04-30] MEDS: MIRTAZAPINE 15 MG TABLET (FP) PO SCH (21:58)
[2022-04-30] MEDS: THIAMINE HCL 100 MG TABLET (FP) PO SCH (21:59)
[2022-04-30] MEDS: MELATONIN 5 MG TABLETS PO SCH (22:02)
[2022-05-01] MEDS ORDERED: chlordiazePOXIDE HCL 10 MG CAPSULE PO ONE (05:00)
[2022-05-01] MEDS: hydrOXYzine PAMOATE 25 MG CAPSULE (FP) PO SCH ×2 (05:35→10:39)
[2022-05-01] MEDS: DARUNAVIR/COB/EMTRI/TENOF (SYMTUZA) TABLET (NF) PO SCH (07:18)
[2022-05-01] MEDS: PRENATAL VITAMINS W/ FOLIC ACID TABLET (FP) PO SCH (10:39)
[2022-05-01 15:12] VITALS: BP 118/72; PULSE 95; TEMP 97.3
== END 2022-05-01 14:30 | disposition home or self-care (01) | DRG 774 ==
LOC: YASAS 16:38 → Y3N 19:46
PROVIDERS: ADMIT Allergy & Immunology; ATTEND Surgery
PROC: HZ2ZZZZ Detoxification Services for Substance Abuse Treatment (ICD-10-PCS; principal; 2022-04-26)
DX: F10.230 Alcohol dependence with withdrawal, uncomplicated (principal); F14.20 Cocaine dependence, uncomplicated; F13.20 Sedative, hypnotic or anxiolytic dependence, uncomplicated; F12.20 Cannabis dependence, uncomplicated; F17.210 Nicotine dependence, cigarettes, uncomplicated; B20 Human immunodeficiency virus [HIV] disease; G47.00 Insomnia, unspecified; Z87.820 Personal history of traumatic brain injury; Z86.59 Personal history of other mental and behavioral disorders; Z86.19 Personal history of other infectious and parasitic diseases
CPT/HCPCS: 36415; 80053; 85027; 86593; 86780; C9803-CS; U0003; U0005

== ENCOUNTER 2023-06-25 15:25 | Inpatient (IN) | payer OTHER ==
[2023-06-25 17:07] VITALS: BMI 20.7
[2023-06-25] MEDS ORDERED: hydrOXYzine PAMOATE 25 MG CAPSULE (FP) PO PRN (18:12)
[2023-06-25] MEDS ORDERED: ONDANSETRON *ODT* 4 MG TABLET SL PRN (18:12)
[2023-06-25] MEDS ORDERED: NICOTINE POLACRILEX 4 MG GUM BUC PRN (18:12)
[2023-06-25] MEDS ORDERED: BISMUTH SUBSALICYLATE 524 MG/30 ML PO PRN (18:12)
[2023-06-25] MEDS ORDERED: MAGNESIUM HYDROX 2400MG/30ML ORAL SUSPENSION 30 ML CUP PO PRN (18:12)
[2023-06-25] MEDS ORDERED: NALOXONE HCL (KLOXXADO) 8 MG SPRAY NS PRN (18:12)
[2023-06-25] MEDS ORDERED: BENZONATATE 200 MG CAPSULE PO PRN (18:12)
[2023-06-25] MEDS ORDERED: LOPERAMIDE HCL 2 MG CAPSULE PO PRN (18:12)
[2023-06-25] MEDS ORDERED: NALOXONE HCL 0.4 MG/ML VIAL IM PRN (18:12)
[2023-06-25] MEDS ORDERED: IBUPROFEN 400 MG TABLET (FP) PO PRN (18:12)
[2023-06-25] MEDS ORDERED: BENZOCAINE/MENTHOL (CHLORASEPTIC ) LOZENGE MM PRN (18:12)
[2023-06-25] MEDS ORDERED: guaiFENesin 600 MG TABLET.ER (FP) PO PRN (18:12)
[2023-06-25] MEDS ORDERED: POLYETHYLENE GLYCOL (HEALTHYLAX) 3350 17 GM PACKET PO PRN (18:12)
[2023-06-25] MEDS ORDERED: MAG HYDROX/AL HYDROX/SIMETH 30 ML UNIT-DOSE CUP PO PRN (18:12)
[2023-06-25] MEDS ORDERED: IBUPROFEN 600 MG TABLET (FP) PO PRN (18:12)
[2023-06-25] MEDS ORDERED: chlordiazePOXIDE HCL 25 MG CAPSULE PO PRN (18:17)
[2023-06-25] MEDS ORDERED: ALBUTEROL SO4 HFA INHALER IH PRN (18:28)
[2023-06-25] MEDS: THIAMINE HCL 100 MG TABLET (FP) PO SCH (22:15)
[2023-06-25] MEDS: chlordiazePOXIDE HCL 25 MG CAPSULE PO SCH (22:16)
[2023-06-25] MEDS: ACETAMINOPHEN 325 MG TABLET (FP) PO PRN (22:18)
[2023-06-25] MEDS: MELATONIN 5 MG TABLETS PO SCH (23:35)
[2023-06-26] MEDS: chlordiazePOXIDE HCL 25 MG CAPSULE PO SCH ×4 (06:00→22:12)
[2023-06-26 10:28] LABS: HEMATOCRIT 31.5 % (35.4-49); HEMOGLOBIN 10.6 GM/dL (11.7-16.9); MCHC 33.6 g/dl (32.0-35.9); MEAN CELL VOLUME 98.2 fl (80-96); MEAN PLT VOLUME 10.3 fl (7.5-11.1); PLATELET COUNT 183 10^3/uL (134-434); RBC 3.21 M/mm3 (4.00-5.60); RDW 15.6 % (11.9-15.9)
[2023-06-26] MEDS: PRENATAL VITAMINS W/ FOLIC ACID TABLET (FP) PO SCH (10:31)
[2023-06-26] MEDS: NICOTINE 21 MG/24 HOURS TOPICAL PATCH TD SCH (10:31)
[2023-06-26] MEDS: ACETAMINOPHEN 325 MG TABLET (FP) PO PRN (10:32)
[2023-06-26 10:35] LABS: CHLORIDE 109 mmol/L (98-107); SODIUM 141 mmol/L (136-145)
[2023-06-26 10:39] LABS: ALBUMIN 3.2 g/dl (3.4-5.0); ANION GAP 5 mmol/L (4-13); CALCIUM 8.3 mg/dL (8.5-10.1); CO2 27 mmol/L (21-32)
[2023-06-26 10:40] LABS: BLOOD UREA NITROGEN 18.9 mg/dL (7-18); GLUCOSE,RANDOM 75 mg/dL (74-106)
[2023-06-26 10:42] LABS: SGPT/ALT 34 U/L (13-61)
[2023-06-26 10:43] LABS: SGOT/AST 38 U/L (15-37)
[2023-06-26 10:44] LABS: BILIRUBIN,TOTAL 0.4 mg/dL (0.2-1); TOT PROT 7.1 g/dl (6.4-8.2)
[2023-06-26 10:46] LABS: ALK PHOS 57 U/L (45-117)
[2023-06-26] MEDS ORDERED: POTASSIUM CHLORIDE ORAL LIQUID 20 MEQ/15 ML PO ONE (11:41)
[2023-06-26] MEDS ORDERED: PATIENT'S OWN MEDICATION (NON-FORMULARY) (Darunavir/Cob/Emtri/Tenof Alaf 1 EACH Tablet) PO SCH (12:00)
[2023-06-26] MEDS: DARUNAVIR 800 MG/COBICISTAT 150MG TABLET PO SCH (14:00)
[2023-06-26] MEDS: EMTRICITABINE/TENOFOV ALAFENAM (DESCOVY) TABLET PO SCH (14:00)
[2023-06-26] MEDS ORDERED: cloNIDine HCL 0.1 MG TABLET PO STA (16:49)
[2023-06-26] MEDS: THIAMINE HCL 100 MG TABLET (FP) PO SCH (22:12)
[2023-06-26] MEDS: MELATONIN 5 MG TABLETS PO SCH (22:12)
[2023-06-26] MEDS: MIRTAZAPINE 15 MG TABLET (FP) PO SCH (22:13)
[2023-06-26] MEDS: POTASSIUM CHLORIDE ORAL LIQUID 20 MEQ/15 ML PO SCH (22:13)
[2023-06-27] MEDS: chlordiazePOXIDE HCL 25 MG CAPSULE PO SCH ×4 (05:50→22:16)
[2023-06-27] MEDS: NICOTINE 21 MG/24 HOURS TOPICAL PATCH TD SCH (10:22)
[2023-06-27] MEDS: PRENATAL VITAMINS W/ FOLIC ACID TABLET (FP) PO SCH (10:22)
[2023-06-27] MEDS: POTASSIUM CHLORIDE ORAL LIQUID 20 MEQ/15 ML PO SCH ×2 (10:22→22:16)
[2023-06-27] MEDS: DARUNAVIR 800 MG/COBICISTAT 150MG TABLET PO SCH (10:23)
[2023-06-27] MEDS: EMTRICITABINE/TENOFOV ALAFENAM (DESCOVY) TABLET PO SCH (10:24)
[2023-06-27] MEDS: MIRTAZAPINE 15 MG TABLET (FP) PO SCH (22:16)
[2023-06-27] MEDS: THIAMINE HCL 100 MG TABLET (FP) PO SCH (22:16)
[2023-06-27] MEDS: MELATONIN 5 MG TABLETS PO SCH (22:22)
[2023-06-28] MEDS ORDERED: chlordiazePOXIDE HCL 10 MG CAPSULE PO PRN
[2023-06-28] MEDS: chlordiazePOXIDE HCL 10 MG CAPSULE PO SCH ×5 (05:19→22:17)
[2023-06-28] MEDS: NICOTINE 21 MG/24 HOURS TOPICAL PATCH TD SCH (10:31)
[2023-06-28] MEDS: POTASSIUM CHLORIDE ORAL LIQUID 20 MEQ/15 ML PO SCH (10:31)
[2023-06-28] MEDS: EMTRICITABINE/TENOFOV ALAFENAM (DESCOVY) TABLET PO SCH (10:31)
[2023-06-28] MEDS: PRENATAL VITAMINS W/ FOLIC ACID TABLET (FP) PO SCH (10:32)
[2023-06-28] MEDS: DARUNAVIR 800 MG/COBICISTAT 150MG TABLET PO SCH (10:32)
[2023-06-28] MEDS: MIRTAZAPINE 15 MG TABLET (FP) PO SCH (22:16)
[2023-06-28] MEDS: THIAMINE HCL 100 MG TABLET (FP) PO SCH (22:16)
[2023-06-28] MEDS: MELATONIN 5 MG TABLETS PO SCH (22:18)
[2023-06-28] MEDS: ACETAMINOPHEN 325 MG TABLET (FP) PO PRN (22:19)
[2023-06-29] MEDS: chlordiazePOXIDE HCL 10 MG CAPSULE PO SCH ×2 (06:00→17:34)
[2023-06-29] MEDS: DARUNAVIR 800 MG/COBICISTAT 150MG TABLET PO SCH (10:28)
[2023-06-29] MEDS: EMTRICITABINE/TENOFOV ALAFENAM (DESCOVY) TABLET PO SCH (10:28)
[2023-06-29] MEDS: NICOTINE 21 MG/24 HOURS TOPICAL PATCH TD SCH (10:29)
[2023-06-29] MEDS: PRENATAL VITAMINS W/ FOLIC ACID TABLET (FP) PO SCH (10:29)
[2023-06-29] MEDS: MIRTAZAPINE 15 MG TABLET (FP) PO SCH (22:10)
[2023-06-29] MEDS: THIAMINE HCL 100 MG TABLET (FP) PO SCH (22:11)
[2023-06-29] MEDS: MELATONIN 5 MG TABLETS PO SCH (22:11)
[2023-06-30] MEDS ORDERED: chlordiazePOXIDE HCL 10 MG CAPSULE PO ONE (05:00)
[2023-06-30 07:12] VITALS: RESP 16
[2023-06-30] MEDS: PRENATAL VITAMINS W/ FOLIC ACID TABLET (FP) PO SCH (10:40)
[2023-06-30] MEDS: NICOTINE 21 MG/24 HOURS TOPICAL PATCH TD SCH (10:40)
[2023-06-30] MEDS: DARUNAVIR 800 MG/COBICISTAT 150MG TABLET PO SCH (10:40)
[2023-06-30] MEDS: EMTRICITABINE/TENOFOV ALAFENAM (DESCOVY) TABLET PO SCH (10:40)
[2023-06-30 13:38] VITALS: BP 113/76; PULSE 66; TEMP 97.8
== END 2023-06-30 14:35 | disposition other institution (70) | DRG 774 ==
LOC: YASAS 15:25 → Y6N 18:45
PROVIDERS: ADMIT Allergy & Immunology; ATTEND Surgery
PROC: HZ2ZZZZ Detoxification Services for Substance Abuse Treatment (ICD-10-PCS; principal; 2023-06-25)
DX: F10.230 Alcohol dependence with withdrawal, uncomplicated (principal); F14.20 Cocaine dependence, uncomplicated; F17.210 Nicotine dependence, cigarettes, uncomplicated; F31.9 Bipolar disorder, unspecified; B20 Human immunodeficiency virus [HIV] disease; G62.9 Polyneuropathy, unspecified; E87.6 Hypokalemia; J45.909 Unspecified asthma, uncomplicated; R56.1 Post traumatic seizures; Z87.820 Personal history of traumatic brain injury; Z99.89 Dependence on other enabling machines and devices; Z86.59 Personal history of other mental and behavioral disorders
CPT/HCPCS: 36415; 80053; 80307; 84132; 85027; 86593; 86780; 87635; 87811; Q0162

== ENCOUNTER 2023-06-30 14:44 | Inpatient (IN) | payer OTHER ==
[2023-06-30] MEDS ORDERED: ACETAMINOPHEN 325 MG TABLET (FP) PO PRN (15:43)
[2023-06-30] MEDS ORDERED: guaiFENesin 600 MG TABLET.ER (FP) PO PRN (15:43)
[2023-06-30] MEDS ORDERED: NICOTINE POLACRILEX 2 MG GUM BUC PRN (15:43)
[2023-06-30] MEDS ORDERED: BENZONATATE 200 MG CAPSULE PO PRN (15:43)
[2023-06-30] MEDS ORDERED: MAGNESIUM HYDROX 2400MG/30ML ORAL SUSPENSION 30 ML CUP PO PRN (15:43)
[2023-06-30] MEDS ORDERED: IBUPROFEN 600 MG TABLET (FP) PO PRN (15:43)
[2023-06-30] MEDS ORDERED: LOPERAMIDE HCL 2 MG CAPSULE PO PRN (15:43)
[2023-06-30] MEDS ORDERED: NALOXONE HCL (KLOXXADO) 8 MG SPRAY NS PRN (15:43)
[2023-06-30] MEDS ORDERED: MAG HYDROX/AL HYDROX/SIMETH 30 ML UNIT-DOSE CUP PO PRN (15:43)
[2023-06-30] MEDS ORDERED: hydrOXYzine PAMOATE 25 MG CAPSULE (FP) PO PRN (15:43)
[2023-06-30] MEDS ORDERED: NALOXONE HCL 0.4 MG/ML VIAL IVPUSH PRN (15:43)
[2023-06-30] MEDS ORDERED: BENZOCAINE/MENTHOL (CHLORASEPTIC ) LOZENGE MM PRN (15:43)
[2023-06-30] MEDS ORDERED: POLYETHYLENE GLYCOL (HEALTHYLAX) 3350 17 GM PACKET PO PRN (15:43)
[2023-06-30] MEDS ORDERED: COLLOIDAL OATMEAL 1 BAR EACH TP PRN (15:43)
[2023-06-30] MEDS ORDERED: ALBUTEROL SO4 HFA INHALER IH PRN (15:47)
[2023-06-30] MEDS: THIAMINE HCL 100 MG TABLET (FP) PO SCH (21:05)
[2023-06-30] MEDS ORDERED: MIRTAZAPINE 15 MG TABLET (FP) PO SCH (22:00)
[2023-06-30] MEDS ORDERED: MIRTAZAPINE 15 MG TABLET (FP) PO ONE (22:00)
[2023-06-30] MEDS ORDERED: MELATONIN 5 MG TABLETS PO SCH (22:00)
[2023-07-01] MEDS: FERROUS SO4 325 MG TABLET (FP) PO SCH (07:09)
[2023-07-01] MEDS ORDERED: DARUNAVIR/COB/EMTRI/TENOF (SYMTUZA) TABLET (NF) PO SCH (10:00)
[2023-07-01] MEDS ORDERED: NICOTINE 14 MG/24 HOURS TOPICAL PATCH TD PRN (10:00)
[2023-07-01] MEDS: BACLOFEN 10 MG TABLET (FP) PO PRN (10:16)
[2023-07-01] MEDS: IBUPROFEN 400 MG TABLET (FP) PO PRN (10:17)
[2023-07-01] MEDS: PRENATAL VITAMINS W/ FOLIC ACID TABLET (FP) PO SCH (10:17)
[2023-07-01] MEDS: MELATONIN 5 MG TABLETS PO SCH (21:28)
[2023-07-01] MEDS: MIRTAZAPINE 15 MG TABLET (FP) PO SCH (21:28)
[2023-07-01] MEDS: THIAMINE HCL 100 MG TABLET (FP) PO SCH (21:28)
[2023-07-02] MEDS: DARUNAVIR/COB/EMTRI/TENOF (SYMTUZA) TABLET (NF) PO SCH (07:03)
[2023-07-02] MEDS: FERROUS SO4 325 MG TABLET (FP) PO SCH (07:03)
[2023-07-02] MEDS: PRENATAL VITAMINS W/ FOLIC ACID TABLET (FP) PO SCH (09:05)
[2023-07-02] MEDS: LACTULOSE 20 GM/30 ML UDC (FOR ORAL USE ONLY) PO SCH ×2 (13:38→21:09)
[2023-07-02] MEDS: MELATONIN 5 MG TABLETS PO SCH (21:08)
[2023-07-02] MEDS: THIAMINE HCL 100 MG TABLET (FP) PO SCH (21:08)
[2023-07-02] MEDS: MIRTAZAPINE 15 MG TABLET (FP) PO SCH (21:09)
[2023-07-03 06:49] VITALS: BP 124/86; PULSE 80; RESP 18; TEMP 97.1
[2023-07-03] MEDS: FERROUS SO4 325 MG TABLET (FP) PO SCH (07:29)
[2023-07-03] MEDS: LACTULOSE 20 GM/30 ML UDC (FOR ORAL USE ONLY) PO SCH ×2 (07:29→13:41)
[2023-07-03] MEDS: DARUNAVIR/COB/EMTRI/TENOF (SYMTUZA) TABLET (NF) PO SCH (07:30)
[2023-07-03] MEDS: PRENATAL VITAMINS W/ FOLIC ACID TABLET (FP) PO SCH (10:28)
[2023-07-03 11:58] LABS: INR 1.01 (0.83-1.09); PROTHROMBIN TIME (PATIENT) 11.7 SEC (9.7-13.0)
[2023-07-03 12:07] LABS: MAGNESIUM 1.9 mg/dL (1.8-2.4)
[2023-07-03] MEDS: BACLOFEN 10 MG TABLET (FP) PO PRN (13:41)
[2023-07-03] MEDS: IBUPROFEN 400 MG TABLET (FP) PO PRN (13:41)
== END 2023-07-03 19:50 | disposition left against medical advice (07) | DRG 770 ==
LOC: YASAS 14:44 → Y3E 14:55
PROVIDERS: ADMIT Allergy & Immunology; ATTEND Psychiatry & Neurology Pain Medicine
PROC: HZ42ZZZ Group Counseling for Substance Abuse Treatment, Cognitive-Behavioral (ICD-10-PCS; principal; 2023-06-30)
DX: F10.20 Alcohol dependence, uncomplicated (principal); F14.20 Cocaine dependence, uncomplicated; F12.20 Cannabis dependence, uncomplicated; F17.210 Nicotine dependence, cigarettes, uncomplicated; E72.20 Disorder of urea cycle metabolism, unspecified; B20 Human immunodeficiency virus [HIV] disease; R56.1 Post traumatic seizures; M54.50 Low back pain, unspecified; G89.29 Other chronic pain; Z87.820 Personal history of traumatic brain injury; Z99.89 Dependence on other enabling machines and devices
CPT/HCPCS: 36415; 82140; 82652; 82746; 83735; 85610; 86803; J0475

== ENCOUNTER 2023-09-12 10:16 | Inpatient (IN) | payer OTHER ==
[2023-09-12 10:45] VITALS: BMI 21.2
[2023-09-12] MEDS ORDERED: ALBUTEROL SO4 HFA INHALER IH PRN (11:23)
[2023-09-12] MEDS ORDERED: LOPERAMIDE HCL 2 MG CAPSULE PO PRN (11:38)
[2023-09-12] MEDS ORDERED: ONDANSETRON *ODT* 4 MG TABLET SL PRN (11:38)
[2023-09-12] MEDS ORDERED: BENZONATATE 200 MG CAPSULE PO PRN (11:38)
[2023-09-12] MEDS ORDERED: ACETAMINOPHEN 325 MG TABLET (FP) PO PRN (11:38)
[2023-09-12] MEDS ORDERED: IBUPROFEN 600 MG TABLET (FP) PO PRN (11:38)
[2023-09-12] MEDS ORDERED: P-EPHED 60MG/TRIPROLIDI 2.5MG TABLET PO PRN (11:38)
[2023-09-12] MEDS ORDERED: BENZOCAINE/MENTHOL (CHLORASEPTIC ) LOZENGE MM PRN (11:38)
[2023-09-12] MEDS ORDERED: NICOTINE POLACRILEX 2 MG LOZENGE BC PRN (11:38)
[2023-09-12] MEDS ORDERED: MAGNESIUM HYDROX 2400MG/30ML ORAL SUSPENSION 30 ML CUP PO PRN (11:38)
[2023-09-12] MEDS ORDERED: MAG HYDROX/AL HYDROX/SIMETH 30 ML UNIT-DOSE CUP PO PRN (11:38)
[2023-09-12] MEDS ORDERED: POLYETHYLENE GLYCOL (HEALTHYLAX) 3350 17 GM PACKET PO PRN (11:38)
[2023-09-12] MEDS ORDERED: BISMUTH SUBSALICYLATE 262 MG/15 ML BTL PO PRN (11:38)
[2023-09-12] MEDS ORDERED: IBUPROFEN 400 MG TABLET (FP) PO PRN (11:38)
[2023-09-12] MEDS ORDERED: DICYCLOMINE HCL 10 MG CAPSULE PO PRN (11:38)
[2023-09-12] MEDS: THIAMINE HCL 100 MG TABLET (FP) PO SCH (23:34)
[2023-09-12] MEDS: MIRTAZAPINE 15 MG TABLET (FP) PO SCH (23:35)
[2023-09-12] MEDS: MELATONIN 5 MG TABLETS PO SCH (23:51)
[2023-09-13] MEDS: DARUNAVIR/COB/EMTRI/TENOF ALAF 1 EACH TABLET PO SCH (07:27)
[2023-09-13 10:42] LABS: HEMATOCRIT 29.9 % (35.4-49); MCH 32.8 pg (25.7-33.7); MCHC 33.6 g/dl (32.0-35.9); MEAN CELL VOLUME 97.7 fl (80-96); MEAN PLT VOLUME 9.5 fl (7.5-11.1); PLATELET COUNT 246 10^3/uL (134-434); RBC 3.06 M/mm3 (4.00-5.60); RDW 14.1 % (11.9-15.9); WHITE BLOOD COUNT 8.3 K/mm3 (4.0-10.0)
[2023-09-13] MEDS: PRENATAL VITAMINS W/ FOLIC ACID TABLET (FP) PO SCH (10:44)
[2023-09-13] MEDS: guaiFENesin 600 MG TABLET.ER (FP) PO PRN ×2 (10:59→22:52)
[2023-09-13] MEDS: METHOCARBAMOL 500 MG TABLET PO PRN ×2 (10:59→17:58)
[2023-09-13 11:07] LABS: POTASSIUM 3.7 mmol/L (3.5-5.1)
[2023-09-13 11:18] LABS: ALBUMIN 3.4 g/dl (3.4-5.0); BLOOD UREA NITROGEN 21.4 mg/dL (7-18); CALCIUM 9.3 mg/dL (8.5-10.1)
[2023-09-13 11:21] LABS: CREATININE 1.1 mg/dL (0.55-1.3)
[2023-09-13 11:22] LABS: BILIRUBIN,TOTAL 0.5 mg/dL (0.2-1)
[2023-09-13] MEDS: MIRTAZAPINE 15 MG TABLET (FP) PO SCH (22:44)
[2023-09-13] MEDS: MELATONIN 5 MG TABLETS PO SCH (22:44)
[2023-09-13] MEDS: THIAMINE HCL 100 MG TABLET (FP) PO SCH (22:44)
[2023-09-14] MEDS: DARUNAVIR/COB/EMTRI/TENOF ALAF 1 EACH TABLET PO SCH (07:09)
[2023-09-14 09:42] VITALS: RESP 18
[2023-09-14] MEDS: guaiFENesin 600 MG TABLET.ER (FP) PO PRN (10:24)
[2023-09-14] MEDS: PRENATAL VITAMINS W/ FOLIC ACID TABLET (FP) PO SCH (10:24)
[2023-09-14] MEDS: METHOCARBAMOL 500 MG TABLET PO PRN (10:24)
[2023-09-14] MEDS ORDERED: cloNIDine HCL 0.1 MG TABLET PO PRN (12:55)
[2023-09-14 13:21] VITALS: BP 118/66; PULSE 78; TEMP 98.1
[2023-09-14] MEDS ORDERED: diazePAM 5 MG TABLET PO SCH (14:00)
[2023-09-14] MEDS ORDERED: SODIUM CHLORIDE NASAL SPRAY 44 ML BOTTLE NS SCH (22:00)
[2023-09-15] MEDS ORDERED: diazePAM 5 MG TABLET PO SCH (06:00)
[2023-09-16] MEDS ORDERED: diazePAM 5 MG TABLET PO ONE (06:00)
== END 2023-09-14 14:28 | disposition home or self-care (01) | DRG 774 ==
LOC: YASAS 10:16 → Y6N 11:52 → UNDOADMIN 11:52 → Y6N 15:17 → UNDODISIN 09-14 14:28
PROVIDERS: ADMIT Allergy & Immunology; ATTEND Allergy & Immunology
PROC: HZ2ZZZZ Detoxification Services for Substance Abuse Treatment (ICD-10-PCS; principal; 2023-09-12)
DX: F10.20 Alcohol dependence, uncomplicated (principal); F14.20 Cocaine dependence, uncomplicated; F12.20 Cannabis dependence, uncomplicated; F17.210 Nicotine dependence, cigarettes, uncomplicated; F19.282 Other psychoactive substance dependence with psychoactive substance-induced sleep disorder; B20 Human immunodeficiency virus [HIV] disease; U07.1 COVID-19; J10.1 Influenza due to other identified influenza virus with other respiratory manifestations; B33.8 Other specified viral diseases; B97.4 Respiratory syncytial virus as the cause of diseases classified elsewhere; G40.909 Epilepsy, unspecified, not intractable, without status epilepticus; G62.9 Polyneuropathy, unspecified; J45.20 Mild intermittent asthma, uncomplicated; R26.89 Other abnormalities of gait and mobility; Z87.820 Personal history of traumatic brain injury; Z86.19 Personal history of other infectious and parasitic diseases
CPT/HCPCS: 0241U-QW; 36415; 80053; 80307; 85027; 86593; 86780

== ENCOUNTER 2024-01-20 14:55 | Inpatient (IN) | payer OTHER ==
[2024-01-20 17:03] VITALS: BMI 19.6
[2024-01-20] MEDS ORDERED: MAGNESIUM HYDROX 2400MG/30ML ORAL SUSPENSION 30 ML CUP PO PRN (20:31)
[2024-01-20] MEDS ORDERED: ACETAMINOPHEN 325 MG TABLET (FP) PO PRN (20:31)
[2024-01-20] MEDS ORDERED: METHOCARBAMOL 500 MG TABLET PO PRN (20:31)
[2024-01-20] MEDS ORDERED: NALOXONE HCL (KLOXXADO) 8 MG SPRAY NS PRN (20:31)
[2024-01-20] MEDS ORDERED: IBUPROFEN 400 MG TABLET (FP) PO PRN (20:31)
[2024-01-20] MEDS ORDERED: NICOTINE POLACRILEX 2 MG GUM BUC PRN (20:31)
[2024-01-20] MEDS ORDERED: IBUPROFEN 600 MG TABLET (FP) PO PRN (20:31)
[2024-01-20] MEDS ORDERED: BENZOCAINE/MENTHOL (CHLORASEPTIC ) LOZENGE MM PRN (20:31)
[2024-01-20] MEDS ORDERED: DICYCLOMINE HCL 10 MG CAPSULE PO PRN (20:31)
[2024-01-20] MEDS ORDERED: ONDANSETRON *ODT* 4 MG TABLET SL PRN (20:31)
[2024-01-20] MEDS ORDERED: BISMUTH SUBSALICYLATE 524 MG/30 ML PO PRN (20:31)
[2024-01-20] MEDS ORDERED: guaiFENesin 600 MG TABLET.ER (FP) PO PRN (20:31)
[2024-01-20] MEDS ORDERED: BENZONATATE 200 MG CAPSULE PO PRN (20:31)
[2024-01-20] MEDS ORDERED: LOPERAMIDE HCL 2 MG CAPSULE PO PRN (20:31)
[2024-01-20] MEDS ORDERED: hydrOXYzine PAMOATE 25 MG CAPSULE (FP) PO PRN (20:31)
[2024-01-20] MEDS ORDERED: POLYETHYLENE GLYCOL (HEALTHYLAX) 3350 17 GM PACKET PO PRN (20:31)
[2024-01-20] MEDS ORDERED: MAG HYDROX/AL HYDROX/SIMETH 30 ML UNIT-DOSE CUP PO PRN (20:31)
[2024-01-20] MEDS ORDERED: NALOXONE HCL 0.4 MG/ML VIAL IM PRN (20:31)
[2024-01-20] MEDS: THIAMINE 100 MG TABLET PO SCH (22:17)
[2024-01-20] MEDS: MELATONIN 5 MG TABLETS PO SCH (22:17)
[2024-01-21] MEDS: PRENATAL VITAMINS W/ FOLIC ACID TABLET (FP) PO SCH (09:54)
[2024-01-21] MEDS: NICOTINE 21 MG/24 HOURS TOPICAL PATCH TD SCH (09:54)
[2024-01-21] MEDS ORDERED: diazePAM 5 MG TABLET PO PRN (10:01)
[2024-01-21 10:28] LABS: CHLORIDE 103 mmol/L (98-107); HEMATOCRIT 35.1 % (35.4-49); HEMOGLOBIN 11.6 GM/dL (11.7-16.9); MCH 32.1 pg (25.7-33.7); MCHC 32.9 g/dl (32.0-35.9); MEAN CELL VOLUME 97.6 fl (80-96); MEAN PLT VOLUME 10.4 fl (7.5-11.1); PLATELET COUNT 191 10^3/uL (134-434); POTASSIUM 4.7 mmol/L (3.5-5.1); RDW 15.6 % (11.9-15.9); SODIUM 137 mmol/L (136-145); WHITE BLOOD COUNT 4.5 K/mm3 (4.0-10.0)
[2024-01-21] MEDS: diazePAM 5 MG TABLET PO SCH (10:28)
[2024-01-21 10:35] LABS: ALBUMIN 3.6 g/dl (3.4-5.0); ANION GAP 4 mmol/L (4-13); BLOOD UREA NITROGEN 11.6 mg/dL (7-18); CALCIUM 9.4 mg/dL (8.5-10.1); CO2 31 mmol/L (21-32); CREATININE 1.3 mg/dL (0.55-1.3); GLUCOSE,RANDOM 90 mg/dL (74-106); SGPT/ALT 22 U/L (13-61)
[2024-01-21 10:37] LABS: TOT PROT 8.5 g/dl (6.4-8.2)
[2024-01-21 10:38] LABS: BILIRUBIN,TOTAL 0.3 mg/dL (0.2-1)
[2024-01-21 10:39] LABS: ALK PHOS 65 U/L (45-117); SGOT/AST 25 U/L (15-37)
[2024-01-22 08:52] VITALS: BP 134/81; PULSE 76; RESP 17; TEMP 97.1
[2024-01-22] MEDS ORDERED: MIRTAZAPINE 15 MG TABLET (FP) PO SCH (22:00)
[2024-01-23] MEDS ORDERED: diazePAM 5 MG TABLET PO SCH (06:00)
[2024-01-24] MEDS ORDERED: diazePAM 5 MG TABLET PO SCH (06:00)
[2024-01-25] MEDS ORDERED: diazePAM 5 MG TABLET PO ONE (06:00)
== END 2024-01-22 10:10 | disposition left against medical advice (07) | DRG 770 ==
LOC: YASAS 14:55 → Y6N 21:16
PROVIDERS: ADMIT Allergy & Immunology; ATTEND Surgery
PROC: HZ2ZZZZ Detoxification Services for Substance Abuse Treatment (ICD-10-PCS; principal; 2024-01-19)
DX: F10.230 Alcohol dependence with withdrawal, uncomplicated (principal); F14.20 Cocaine dependence, uncomplicated; F12.20 Cannabis dependence, uncomplicated; F17.210 Nicotine dependence, cigarettes, uncomplicated; F31.9 Bipolar disorder, unspecified; F19.282 Other psychoactive substance dependence with psychoactive substance-induced sleep disorder; B20 Human immunodeficiency virus [HIV] disease; D50.9 Iron deficiency anemia, unspecified; G40.909 Epilepsy, unspecified, not intractable, without status epilepticus; J45.22 Mild intermittent asthma with status asthmaticus; H54.61 Unqualified visual loss, right eye, normal vision left eye; M54.50 Low back pain, unspecified; G89.29 Other chronic pain; R76.8 Other specified abnormal immunological findings in serum; Z86.19 Personal history of other infectious and parasitic diseases; Z79.899 Other long term (current) drug therapy; Z87.820 Personal history of traumatic brain injury
CPT/HCPCS: 36415; 80053; 80305; 80307; 85027; 86593; 86780; 93005; 93010

== ENCOUNTER 2024-03-10 13:43 | Inpatient (IN) | payer OTHER ==
[2024-03-10 14:35] VITALS: BMI 19.2
[2024-03-10] MEDS ORDERED: guaiFENesin 600 MG TABLET.ER (FP) PO PRN (17:16)
[2024-03-10] MEDS ORDERED: LOPERAMIDE HCL 2 MG CAPSULE PO PRN (17:16)
[2024-03-10] MEDS ORDERED: ONDANSETRON *ODT* 4 MG TABLET SL PRN (17:16)
[2024-03-10] MEDS ORDERED: DICYCLOMINE HCL 10 MG CAPSULE PO PRN (17:16)
[2024-03-10] MEDS ORDERED: diazePAM 5 MG TABLET PO PRN (17:17)
[2024-03-10] MEDS ORDERED: ALBUTEROL SO4 HFA INHALER IH PRN (17:18)
[2024-03-10] MEDS ORDERED: diazePAM 5 MG TABLET ONE (18:17)
[2024-03-10] MEDS ORDERED: IBUPROFEN 400 MG TABLET (FP) PO ONE (18:18)
[2024-03-10] MEDS: IBUPROFEN 400 MG TABLET (FP) PO ONE (18:20)
[2024-03-10] MEDS: diazePAM 5 MG TABLET PO SCH (18:20)
[2024-03-10] MEDS: DARUNAVIR/COB/EMTRI/TENOF ALAF 1 EACH TABLET PO SCH ×2 (20:19→20:41)
[2024-03-10] MEDS: THIAMINE 100 MG TABLET PO SCH (22:10)
[2024-03-11] MEDS: PRENATAL VITAMINS W/ FOLIC ACID TABLET (FP) PO SCH (10:20)
[2024-03-11 11:41] LABS: POTASSIUM 3.8 mmol/L (3.5-5.1)
[2024-03-11 11:48] LABS: ALBUMIN 3.6 g/dl (3.4-5.0); BLOOD UREA NITROGEN 17.6 mg/dL (7-18)
[2024-03-11 11:49] LABS: BILIRUBIN,TOTAL 0.4 mg/dL (0.2-1); TOT PROT 8.4 g/dl (6.4-8.2)
[2024-03-11 11:50] LABS: HEMATOCRIT 34.5 % (35.4-49); HEMOGLOBIN 11.8 GM/dL (11.7-16.9); MCH 33.1 pg (25.7-33.7); MCHC 34.1 g/dl (32.0-35.9); MEAN CELL VOLUME 97.1 fl (80-96); MEAN PLT VOLUME 10.4 fl (7.5-11.1); PLATELET COUNT 127 10^3/uL (134-434); RBC 3.55 M/mm3 (4.00-5.60); RDW 14.4 % (11.9-15.9); WHITE BLOOD COUNT 3.5 K/mm3 (4.0-10.0)
[2024-03-11 12:11] LABS: CALCIUM 8.9 mg/dL (8.5-10.1)
[2024-03-11] MEDS: METHOCARBAMOL 500 MG TABLET PO PRN (22:05)
[2024-03-11] MEDS: hydrOXYzine PAMOATE 25 MG CAPSULE (FP) PO PRN (22:05)
[2024-03-12] MEDS: diazePAM 5 MG TABLET PO SCH (05:52)
[2024-03-12 06:26] VITALS: RESP 16
[2024-03-12 09:19] VITALS: BP 125/91; PULSE 95; TEMP 97.1
[2024-03-12] MEDS ORDERED: traZODone HCL 100 MG TABLET (FP) PO SCH (22:00)
[2024-03-13] MEDS ORDERED: diazePAM 5 MG TABLET PO SCH (06:00)
[2024-03-14] MEDS ORDERED: diazePAM 5 MG TABLET PO ONE (06:00)
== END 2024-03-12 11:52 | disposition home or self-care (01) | DRG 774 ==
LOC: YASAS 13:43 → Y6N 18:10
PROVIDERS: ADMIT Allergy & Immunology; ATTEND Surgery
DX: F10.230 Alcohol dependence with withdrawal, uncomplicated (principal); F14.20 Cocaine dependence, uncomplicated; F12.20 Cannabis dependence, uncomplicated; F17.210 Nicotine dependence, cigarettes, uncomplicated; F31.9 Bipolar disorder, unspecified; F41.9 Anxiety disorder, unspecified; B20 Human immunodeficiency virus [HIV] disease; D50.9 Iron deficiency anemia, unspecified; J45.20 Mild intermittent asthma, uncomplicated; H54.61 Unqualified visual loss, right eye, normal vision left eye; R26.89 Other abnormalities of gait and mobility; Z99.89 Dependence on other enabling machines and devices; Z87.820 Personal history of traumatic brain injury; Z79.899 Other long term (current) drug therapy
CPT/HCPCS: 36415; 80053; 80305; 85027; 86593; 86780; 93005; 93010

== ENCOUNTER 2024-08-10 09:22 | Inpatient (IN) | payer OTHER ==
[2024-08-10 09:39] VITALS: BMI 19.8
[2024-08-10] MEDS ORDERED: LOPERAMIDE HCL 2 MG CAPSULE PO PRN (10:16)
[2024-08-10] MEDS ORDERED: BENZONATATE 200 MG CAPSULE PO PRN (10:16)
[2024-08-10] MEDS ORDERED: IBUPROFEN 400 MG TABLET (FP) PO PRN (10:16)
[2024-08-10] MEDS ORDERED: MAG HYDROX/AL HYDROX/SIMETH 30 ML UNIT-DOSE CUP PO PRN (10:16)
[2024-08-10] MEDS ORDERED: BISMUTH SUBSALICYLATE 524 MG/30 ML PO PRN (10:16)
[2024-08-10] MEDS ORDERED: ACETAMINOPHEN 325 MG TABLET (FP) PO PRN (10:16)
[2024-08-10] MEDS ORDERED: DICYCLOMINE HCL 10 MG CAPSULE PO PRN (10:16)
[2024-08-10] MEDS ORDERED: POLYETHYLENE GLYCOL (HEALTHYLAX) 3350 17 GM PACKET PO PRN (10:16)
[2024-08-10] MEDS ORDERED: guaiFENesin 600 MG TABLET.ER (FP) PO PRN (10:16)
[2024-08-10] MEDS ORDERED: MAGNESIUM HYDROX 2400MG/30ML ORAL SUSPENSION 30 ML CUP PO PRN (10:16)
[2024-08-10] MEDS ORDERED: NALOXONE (NARCAN) HCL 4 MG/0.1 ML SPRAY NS PRN (10:16)
[2024-08-10] MEDS ORDERED: BENZOCAINE/MENTHOL (CHLORASEPTIC ) LOZENGE MM PRN (10:16)
[2024-08-10] MEDS ORDERED: ONDANSETRON *ODT* 4 MG TABLET SL PRN (10:16)
[2024-08-10] MEDS ORDERED: ALBUTEROL SO4 HFA INHALER IH PRN (10:19)
[2024-08-10] MEDS: PRENATAL VITAMINS W/ FOLIC ACID TABLET (FP) PO SCH (12:19)
[2024-08-10] MEDS: chlordiazePOXIDE HCL 25 MG CAPSULE PO SCH (17:51)
[2024-08-10] MEDS: MELATONIN 5 MG TABLETS PO SCH (22:41)
[2024-08-10] MEDS: THIAMINE 100 MG TABLET PO SCH (22:41)
[2024-08-11] MEDS: chlordiazePOXIDE HCL 25 MG CAPSULE PO PRN (03:08)
[2024-08-11] MEDS: DARUNAVIR/COB/EMTRI/TENOF ALAF 1 EACH TABLET PO SCH (07:31)
[2024-08-11 11:20] LABS: HEMATOCRIT 33.4 % (35.4-49); HEMOGLOBIN 11.4 GM/dL (11.7-16.9); MCH 32.7 pg (25.7-33.7); MEAN PLT VOLUME 11.1 fl (7.5-11.1); PLATELET COUNT 99 10^3/uL (134-434); RBC 3.47 M/mm3 (4.00-5.60); WHITE BLOOD COUNT 11.8 K/mm3 (4.0-10.0)
[2024-08-11 13:34] LABS: POTASSIUM 3.9 mmol/L (3.5-5.1)
[2024-08-11 13:35] LABS: CALCIUM 8.7 mg/dL (8.5-10.1)
[2024-08-11 13:36] LABS: ALBUMIN 3.2 g/dl (3.4-5.0)
[2024-08-11 13:38] LABS: BLOOD UREA NITROGEN 14.2 mg/dL (7-18)
[2024-08-11 13:41] LABS: TOT PROT 7.4 g/dl (6.4-8.2)
[2024-08-11 13:44] LABS: BILIRUBIN,TOTAL 0.4 mg/dL (0.2-1)
[2024-08-11] MEDS: METHOCARBAMOL 500 MG TABLET PO PRN (22:25)
[2024-08-11] MEDS: hydrOXYzine PAMOATE 25 MG CAPSULE (FP) PO PRN (22:25)
[2024-08-12] MEDS: chlordiazePOXIDE HCL 25 MG CAPSULE PO SCH (05:35)
[2024-08-12] MEDS: IBUPROFEN 600 MG TABLET (FP) PO PRN (06:06)
[2024-08-12 09:58] VITALS: RESP 18
[2024-08-12] MEDS: ARIPiprazole 5 MG TABLET PO SCH (10:50)
[2024-08-12 13:25] VITALS: TEMP 97.5
[2024-08-12 17:09] VITALS: BP 137/85; PULSE 79
[2024-08-12] MEDS ORDERED: QUEtiapine FUMARATE 50 MG TABLET PO SCH (22:00)
[2024-08-12] MEDS ORDERED: traZODone HCL 50 MG TABLET (FP) PO SCH (22:00)
[2024-08-13] MEDS ORDERED: chlordiazePOXIDE HCL 10 MG CAPSULE PO PRN
[2024-08-13] MEDS ORDERED: chlordiazePOXIDE HCL 10 MG CAPSULE PO SCH (05:00)
[2024-08-14] MEDS ORDERED: chlordiazePOXIDE HCL 10 MG CAPSULE PO SCH (05:00)
[2024-08-15] MEDS ORDERED: chlordiazePOXIDE HCL 10 MG CAPSULE PO ONE (05:00)
== END 2024-08-12 20:04 | disposition left against medical advice (07) | DRG 770 ==
LOC: YASAS 09:22 → Y3N 11:34
PROVIDERS: ADMIT Allergy & Immunology; ATTEND Allergy & Immunology
PROC: HZ2ZZZZ Detoxification Services for Substance Abuse Treatment (ICD-10-PCS; principal; 2024-08-10)
DX: F10.230 Alcohol dependence with withdrawal, uncomplicated (principal); F14.20 Cocaine dependence, uncomplicated; F12.20 Cannabis dependence, uncomplicated; F17.210 Nicotine dependence, cigarettes, uncomplicated; F19.282 Other psychoactive substance dependence with psychoactive substance-induced sleep disorder; F31.9 Bipolar disorder, unspecified; F19.24 Other psychoactive substance dependence with psychoactive substance-induced mood disorder; F41.9 Anxiety disorder, unspecified; B20 Human immunodeficiency virus [HIV] disease; I10 Essential (primary) hypertension; J45.909 Unspecified asthma, uncomplicated; G40.909 Epilepsy, unspecified, not intractable, without status epilepticus; R76.8 Other specified abnormal immunological findings in serum; Z86.19 Personal history of other infectious and parasitic diseases
CPT/HCPCS: 36415; 80053; 80307; 85027; 86593; 86780; 93005; 93010

== ENCOUNTER 2024-10-24 14:07 | Inpatient (IN) | payer OTHER ==
[2024-10-24 14:37] VITALS: BMI 19.3
[2024-10-24] MEDS ORDERED: LOPERAMIDE HCL 2 MG CAPSULE PO PRN (15:02)
[2024-10-24] MEDS ORDERED: ACETAMINOPHEN 325 MG TABLET (FP) PO PRN (15:02)
[2024-10-24] MEDS ORDERED: NICOTINE POLACRILEX 2 MG GUM BUC PRN (15:02)
[2024-10-24] MEDS ORDERED: guaiFENesin 600 MG TABLET.ER (FP) PO PRN (15:02)
[2024-10-24] MEDS ORDERED: BENZOCAINE/MENTHOL (CHLORASEPTIC ) LOZENGE MM PRN (15:02)
[2024-10-24] MEDS ORDERED: MAGNESIUM HYDROX 2400MG/30ML ORAL SUSPENSION 30 ML CUP PO PRN (15:02)
[2024-10-24] MEDS ORDERED: hydrOXYzine PAMOATE 25 MG CAPSULE (FP) PO PRN (15:02)
[2024-10-24] MEDS ORDERED: NALOXONE (NARCAN) HCL 4 MG/0.1 ML SPRAY NS PRN (15:02)
[2024-10-24] MEDS ORDERED: NICOTINE POLACRILEX 2 MG LOZENGE BC PRN (15:02)
[2024-10-24] MEDS ORDERED: MAG HYDROX/AL HYDROX/SIMETH 30 ML UNIT-DOSE CUP PO PRN (15:02)
[2024-10-24] MEDS ORDERED: IBUPROFEN 400 MG TABLET (FP) PO PRN (15:02)
[2024-10-24] MEDS ORDERED: POLYETHYLENE GLYCOL (HEALTHYLAX) 3350 17 GM PACKET PO PRN (15:02)
[2024-10-24] MEDS ORDERED: BENZONATATE 200 MG CAPSULE PO PRN (15:02)
[2024-10-24] MEDS ORDERED: ALBUTEROL SO4 HFA INHALER IH PRN (18:51)
[2024-10-24] MEDS: MELATONIN 5 MG TABLETS PO SCH (22:13)
[2024-10-24] MEDS: THIAMINE 100 MG TABLET PO SCH (22:13)
[2024-10-25] MEDS: IBUPROFEN 600 MG TABLET (FP) PO PRN (01:06)
[2024-10-25] MEDS ORDERED: DARUNAVIR/COB/EMTRI/TENOF ALAF 1 EACH TABLET PO SCH ×2 (10:00)
[2024-10-25] MEDS: PRENATAL VITAMINS W/ FOLIC ACID TABLET (FP) PO SCH (10:24)
[2024-10-25] MEDS: DARUNAVIR/COB/EMTRI/TENOF ALAF 1 EACH TABLET PO SCH (10:24)
[2024-10-25 10:49] LABS: CHLORIDE 108 mmol/L (98-107); POTASSIUM 4.2 mmol/L (3.5-5.1); SODIUM 138 mmol/L (136-145)
[2024-10-25 10:57] LABS: HEMATOCRIT 33.9 % (35.4-49); HEMOGLOBIN 11.4 GM/dL (11.7-16.9); MCH 32.8 pg (25.7-33.7); MCHC 33.7 g/dl (32.0-35.9); MEAN CELL VOLUME 97.4 fl (80-96); MEAN PLT VOLUME 9.5 fl (7.5-11.1); PLATELET COUNT 218 10^3/uL (134-434); RBC 3.48 M/mm3 (4.00-5.60); RDW 15.2 % (11.9-15.9); WHITE BLOOD COUNT 3.6 K/mm3 (4.0-10.0)
[2024-10-25 11:08] LABS: ALBUMIN 3.3 g/dl (3.4-5.0); ANION GAP 2 mmol/L (4-13); BLOOD UREA NITROGEN 15.7 mg/dL (7-18); CALCIUM 8.8 mg/dL (8.5-10.1); CO2 28 mmol/L (21-32); GLUCOSE,RANDOM 76 mg/dL (74-106)
[2024-10-25 11:11] LABS: CREATININE 0.9 mg/dL (0.55-1.3); SGOT/AST 28 U/L (15-37); SGPT/ALT 23 U/L (13-61)
[2024-10-25 11:12] LABS: BILIRUBIN,TOTAL 0.5 mg/dL (0.2-1)
[2024-10-25 11:13] LABS: TOT PROT 7.8 g/dl (6.4-8.2)
[2024-10-25 11:14] LABS: ALK PHOS 61 U/L (45-117)
[2024-10-25] MEDS: QUEtiapine FUMARATE 50 MG TABLET PO SCH (21:58)
[2024-10-26 17:29] LABS: PH,URINE 7.5 (5.0-8.0); URINE APPEARANCE CLEAR; URINE BILIRUBIN NEGATIVE (NEGATIVE); URINE COLOR YELLOW; URINE GLUCOSE (UA) NEGATIVE (NEGATIVE); URINE KETONE NEGATIVE (NEGATIVE); URINE LEUK ESTERASE NEGATIVE (NEGATIVE); URINE NITRITE NEGATIVE (NEGATIVE); URINE PROTEIN NEGATIVE (NEGATIVE)
[2024-10-27] MEDS: LIDOCAINE 5% TOPICAL PATCH TP SCH (11:49)
[2024-10-27] MEDS: GABAPENTIN 100 MG CAPSULE PO SCH (13:50)
[2024-10-27] MEDS: BACLOFEN 10 MG TABLET (FP) PO SCH (21:09)
[2024-10-27] MEDS: LIDOCAINE PATCH REMOVAL MC SCH (23:36)
[2024-10-28] MEDS: IBUPROFEN 600 MG TABLET (FP) PO PRN (06:30)
[2024-10-29] MEDS: QUEtiapine FUMARATE 100 MG TABLET (FP) PO PRN (21:35)
[2024-10-29] MEDS: METHYL SALICYLATE/MENTHOL 30 GM TUBE TP SCH (21:37)
[2024-10-30] MEDS: ACETAMINOPHEN 325 MG TABLET (FP) PO PRN (08:49)
[2024-11-01 07:05] VITALS: RESP 18; TEMP 98.7
[2024-11-01 07:49] VITALS: BP 127/85; PULSE 92
== END 2024-11-01 09:13 | disposition home or self-care (01) | DRG 772 ==
LOC: YASAS 14:07 → Y3E 17:57
PROVIDERS: ADMIT Psychiatry & Neurology Pain Medicine; ATTEND Psychiatry & Neurology Pain Medicine
PROC: HZ42ZZZ Group Counseling for Substance Abuse Treatment, Cognitive-Behavioral (ICD-10-PCS; principal; 2024-10-24)
DX: F10.20 Alcohol dependence, uncomplicated (principal); F14.20 Cocaine dependence, uncomplicated; F12.20 Cannabis dependence, uncomplicated; F17.210 Nicotine dependence, cigarettes, uncomplicated; F19.282 Other psychoactive substance dependence with psychoactive substance-induced sleep disorder; F19.280 Other psychoactive substance dependence with psychoactive substance-induced anxiety disorder; F31.9 Bipolar disorder, unspecified; F43.10 Post-traumatic stress disorder, unspecified; F41.9 Anxiety disorder, unspecified; B20 Human immunodeficiency virus [HIV] disease; G40.909 Epilepsy, unspecified, not intractable, without status epilepticus; H54.61 Unqualified visual loss, right eye, normal vision left eye; J45.20 Mild intermittent asthma, uncomplicated; M54.12 Radiculopathy, cervical region; M54.50 Low back pain, unspecified; G89.29 Other chronic pain; Z87.820 Personal history of traumatic brain injury; Z79.899 Other long term (current) drug therapy
CPT/HCPCS: 36415; 80053; 80305; 80307; 81003; 85027; 86593; 86780; 87811; J0475